=== PATIENT | female | born 1950 | race Caucasian/White ===

== ENCOUNTER → 2018-08-25 | Outpatient (CLI) | payer MEDICARE, OTHER | LOC: M WUC 17:23 | DX: M19.041 Primary osteoarthritis, right hand (principal) | CPT/HCPCS: 73130 ==

== ENCOUNTER → 2019-02-21 | Outpatient (CLI) | payer MEDICARE, OTHER ==
[2019-02-21 16:33] LABS: BASO % 0.4 % (0.0-1.0); HEMATOCRIT 42.3 % (36.0-47.0); HEMOGLOBIN 13.3 g/dl (12.0-15.5); LYMPH # 2.2 10^3/uL (1.5-4.5); LYMPH % 20.6 % (24.0-44.0); MEAN CORPUSCULAR HEMOGLOBIN 26.1 pg (27.0-33.0); MEAN CORPUSCULAR HGB CONC 31.4 g/dl (32.0-36.5); MEAN CORPUSCULAR VOLUME 82.9 fl (80.0-96.0); MONO # 0.9 10^3/uL (0.0-0.8); MONO % 8.4 % (0.0-5.0); NEUTROPHILS # 7.7 10^3/uL (1.8-7.7); NEUTROPHILS % 70.2 % (36.0-66.0); PLATELET COUNT, AUTOMATED 328 10^3/uL (150-450); WHITE BLOOD COUNT 10.9 10^3/uL (4.0-10.0)
[2019-02-21 16:43] LABS: ALBUMIN 3.8 GM/DL (3.2-5.2); BILIRUBIN,TOTAL 0.4 MG/DL (0.2-1.0); CALCIUM LEVEL 9.3 MG/DL (8.8-10.2); CREATININE FOR GFR 1.01 MG/DL (0.55-1.30); FREE T4 1.25 NG/DL (0.76-1.46); GLOMERULAR FILTRATION RATE 58.2 (>45); POTASSIUM SERUM 4.5 MEQ/L (3.5-5.1); THYROID STIMULATING HORMONE 2.88 uIU/ML (0.358-3.740); TOTAL PROTEIN 7.2 GM/DL (6.4-8.2)
[2019-02-21 16:50] LABS: HEMOGLOBIN A1c 6.3 %
== END ==
LOC: M WUC 12:32
PROVIDERS: ATTEND Physician Assistant
DX: R22.42 Localized swelling, mass and lump, left lower limb (principal); L03.116 Cellulitis of left lower limb

== ENCOUNTER → 2019-03-27 | Outpatient (CLI) | payer MEDICARE, OTHER ==
--- NOTE | 2019-03-27 15:43 | REP ---
BILATERAL LOWER EXTREMITY DUPLEX DOPPLER ARTERIAL ULTRASOUND: Real-time ultrasound evaluation and duplex Doppler interrogation of bilateral lower extremity arterial systems is performed. There are normal flow velocities bilaterally. Triphasic waveforms are seen throughout the right lower extremity arterial system as well as the left lower extremity arterial system, although monophasic waveforms are seen in the left profunda, distal left SFA, proximal posterior tibial artery and distal left anterior tibial artery. I do not see evidence of severe stenosis or occlusion. RIGHT LEFT Common femoral artery 150.9 cm/s 129.9 cm/s Profunda 75.8 cm/s 72.0 cm/s SFA 140.7 cm/s 146.4 cm/s Popliteal 73 cm/s 87.2 cm/s Proximal PHILIP 86.0 cm/s 63.4 cm/s Tibial peroneal trunk 66.5 cm/s 94.9 cm/s Proximal [employer] 59 cm/s 53.2 cm/s Distal [employer] 74 cm/s 139.6 cm/s Distal PHILIP 98 cm/s 105.4 cm/s IMPRESSION: No compelling duplex Doppler sonographic evidence of severe stenosis or occlusion. Electronically Signed by Frank Bardales MD 03/28/2019 04:45 P
== END ==
LOC: M RAD 12:48
PROVIDERS: ATTEND Surgery
DX: I87.312 Chronic venous hypertension (idiopathic) with ulcer of left lower extremity (principal)

== ENCOUNTER → 2019-09-13 | Outpatient (CLI) | payer MEDICARE, OTHER ==
--- NOTE | 2019-09-13 15:49 | REP ---
Bilateral lower extremity duplex venous ultrasound with reflux evaluation. History: Chronic venous hypertension with ulcer. Findings: The deep veins are anechoic and fully compressible on two-dimensional scanning from the groin to the popliteal fossa in both lower extremities. Color flow and spectral Doppler interrogation show no evidence of venous thrombosis on either side. Reflux study: There was no evidence of deep system or superficial system venous reflux in either lower extremity with the exam done supine or with the bed tipped. The right greater saphenous vein measures 7.3 mm in AP dimension proximally at the saphenous femoral junction, 7.0 mm at midthigh, and 5.1 mm at the knee. The lesser saphenous vein measures 4.3 mm. On the left the greater saphenous vein measures 7.0 mm proximally at the saphenofemoral junction, 7.2 mm at midthigh, and 5.5 mm at the knee. The lesser saphenous vein measures 4.2 mm. Impression: There is no evidence of deep venous thrombosis or reflux in either lower extremity. Electronically Signed by Torsten Cordova MD 09/24/2019 10:05 A
== END ==
LOC: M RAD 10:21
PROVIDERS: ATTEND Surgery Vascular Surgery
DX: I87.332 Chronic venous hypertension (idiopathic) with ulcer and inflammation of left lower extremity (principal); I87.301 Chronic venous hypertension (idiopathic) without complications of right lower extremity; I70.243 Atherosclerosis of native arteries of left leg with ulceration of ankle

== ENCOUNTER 2023-11-19 16:20 | Inpatient (IN) | payer MEDICARE, OTHER ==
[~2023-11-19] VITALS: Ht 157.5 cm; Wt 145.0 kg
[2023-11-19 17:03] LABS: ABG BASE EXCESS 4.1 (-2.0-2.0); ABG O2 SATURATION 91.7 % (95.0-99.0); ABG PARTIAL PRESSURE CO2 49.7 mmHg (35.0-45.0); ABG PARTIAL PRESSURE O2 61.2 mmHg (75.0-100.0); ABG TOTAL CO2 31.5 MMOL/L (23.0-31.0); ABG pH (ARTERIAL) 7.398 UNITS (7.350-7.450)
[2023-11-19 17:50] LABS: HEMATOCRIT 40.3 % (36.0-47.0); MEAN CORPUSCULAR HEMOGLOBIN 25.7 pg (27.0-33.0); MEAN CORPUSCULAR HGB CONC 32.3 g/dl (32.0-36.5); MEAN CORPUSCULAR VOLUME 79.6 fl (80.0-96.0); RED BLOOD COUNT 5.06 10^6/uL (4.00-5.40); WHITE BLOOD COUNT 10.4 10^3/uL (4.0-10.0)
[2023-11-19 17:58] LABS: ALBUMIN 2.5 G/DL (3.2-5.2); BILIRUBIN,DIRECT 1.1 MG/DL (<0.4); BILIRUBIN,TOTAL 1.6 MG/DL (0.3-1.2); CALCIUM LEVEL 9.6 MG/DL (8.3-10.6); CK-MB VALUE MASS 2.1 NG/ML (<3.6); CREATININE FOR GFR 1.39 MG/DL (0.55-1.30); GLOMERULAR FILTRATION RATE 39.7 (>39); MB/CK RELATIVE INDEX 0.65 (< OR =4); POTASSIUM SERUM 4.4 MMOL/L (3.5-5.1); TOTAL PROTEIN 6.5 G/DL (5.7-8.2)
[2023-11-19 18:00] LABS: THYROID STIMULATING HORMONE 3.278 uIU/ML (0.55-4.78)
[2023-11-19 18:01] LABS: THYROXINE (T4) 7.4 UG/DL (4.5-10.9)
[2023-11-19 18:10] LABS: INR 1.34; PROCALCITONIN 33.8 ng/ml; PROTHROMBIN TIME 16.1 SECONDS (12.5-14.5)
[2023-11-19] MEDS ORDERED: NS 1,000 ML IV ONE ×2 (18:10→21:35)
[2023-11-19 18:11] LABS: PARTIAL THROMBOPLASTIN TIME 27.1 SECONDS (24.8-34.2)
[2023-11-19] MEDS ORDERED: ISOVUE-370 76% 100ML VIAL As Ordered ONE (18:12)
[2023-11-19 18:31] LABS: EOSINOPHILS 1 % (0-3); LYMPHOCYTES 2 % (16-44); METAMYELOCYTES 2 % (0-0); MONOCYTES 5 % (0-5); NEUTROPHILS 79 % (28-66)
[2023-11-19 18:36] LABS: PLATELET COUNT, AUTOMATED 84 10^3/uL (150-450); PLATELET ESTIMATE DECREASED (NORMAL)
[2023-11-19] MEDS ORDERED: HOME MED LIST COMPLETE! XX SCH (18:50)
[2023-11-19] MEDS ORDERED: cefTRIAXone SOD 2 GM in D5W MINI-BAG PLUS 50 ML IV ONE (18:55)
[2023-11-19 18:59] LABS: CK-MB VALUE MASS 1.9 NG/ML (<3.6)
[2023-11-19 19:00] LABS: MB/CK RELATIVE INDEX 0.63 (< OR =4)
[2023-11-19] MEDS ORDERED: ALBUTEROL SULFATE 2.5MG/0.5ML INH NEB SOLN NEB ONE (21:25)
[2023-11-19 22:44] VITALS: BP 116/57; TEMP 97.7; O2SAT 93
[2023-11-19 23:00] VITALS: TEMP 98.7
[2023-11-19] MEDS ORDERED: FLUCONAZOLE 200 MG in IV 1 EA IV ONE (23:00)
[2023-11-19] MEDS ORDERED: ALBUTEROL SULFATE 2.5MG/0.5ML INH NEB SOLN NEB PRN (23:00)
[2023-11-19 23:16] LABS: ABG BASE EXCESS 2.7 (-2.0-2.0); ABG HCO3 30.4 MMOL/L (22.0-26.0); ABG O2 SATURATION 96.3 % (95.0-99.0); ABG PARTIAL PRESSURE O2 90.2 mmHg (75.0-100.0); ABG STANDARD HCO3 26.9 MMOL/L. (22.0-26.0); ABG TOTAL CO2 32.3 MMOL/L (23.0-31.0); ABG pH (ARTERIAL) 7.309 UNITS (7.350-7.450)
[2023-11-20] VITALS (15 sets, daily range): BP systolic 105–148; BP diastolic 51–69; TEMP 98–99.1; O2SAT 87–99
[2023-11-20] MEDS: NS 1,000 ML IV SCH ×2 (00:07→18:13)
[2023-11-20] MEDS: IPRATROPIUM 0.5MG/ALBUTEROL 2.5MG INH SOL UD 3ML (DUONEB) NEB SCH ×4 (02:28→19:38)
[2023-11-20 05:30] LABS: ABG BASE EXCESS 2.9 (-2.0-2.0); ABG HCO3 29.1 MMOL/L (22.0-26.0); ABG O2 SATURATION 94.1 % (95.0-99.0); ABG PARTIAL PRESSURE CO2 51.7 mmHg (35.0-45.0); ABG PARTIAL PRESSURE O2 70.4 mmHg (75.0-100.0); ABG TOTAL CO2 30.7 MMOL/L (23.0-31.0); ABG pH (ARTERIAL) 7.368 UNITS (7.350-7.450)
[2023-11-20] MEDS ORDERED: HEPARIN SOD (PORCINE) 5000UNITS/ML 1ML VIAL/SYRINGE SC SCH (06:00)
[2023-11-20] MEDS: ACETAMINOPHEN TAB 650MG DOSE (2X325MG) PO PRN ×3 (06:18→22:07)
[2023-11-20 06:21] LABS: HEMATOCRIT 34.7 % (36.0-47.0); HEMOGLOBIN 11.3 g/dl (12.0-15.5); MEAN CORPUSCULAR HEMOGLOBIN 25.9 pg (27.0-33.0); MEAN CORPUSCULAR HGB CONC 32.6 g/dl (32.0-36.5); MEAN CORPUSCULAR VOLUME 79.6 fl (80.0-96.0); RED BLOOD COUNT 4.36 10^6/uL (4.00-5.40); WHITE BLOOD COUNT 11.6 10^3/uL (4.0-10.0)
[2023-11-20 06:22] LABS: PLATELET COUNT, AUTOMATED 63 10^3/uL (150-450)
[2023-11-20 07:02] LABS: LYMPHOCYTES 8 % (16-44); MONOCYTES 5 % (0-5); NEUTROPHILS 83 % (28-66)
[2023-11-20 07:04] LABS: PLATELET ESTIMATE DECREASED (NORMAL)
[2023-11-20 08:25] LABS: ALBUMIN 1.9 G/DL (3.2-5.2); BILIRUBIN,TOTAL 1.3 MG/DL (0.3-1.2); CALCIUM LEVEL 8.4 MG/DL (8.3-10.6); CREATININE FOR GFR 1.44 MG/DL (0.55-1.30); GLOMERULAR FILTRATION RATE 38.1 (>39); PHOSPHORUS LEVEL 4.5 MG/DL (2.4-5.1); POTASSIUM SERUM 4.8 MMOL/L (3.5-5.1); TOTAL PROTEIN 5.3 G/DL (5.7-8.2)
[2023-11-20] MEDS: NYSTATIN 100,000 UNITS/GM TOPICAL PWD 15GM TOP SCH (09:00)
[2023-11-20 11:50] LABS: VENOUS BASE EXCESS 2.2 (-2.0-2.0); VENOUS HCO3 28.2 MMOL/L (23.0-27.0); VENOUS O2 SATURATION 99.6 % (60.0-80.0); VENOUS PARTIAL PRESSURE CO2 49.7 mmHg (38.0-50.0); VENOUS PARTIAL PRESSURE O2 204.6 mmHg (30.0-50.0); VENOUS PH 7.371 UNITS (7.330-7.430); VENOUS STANDARD HCO3 26.5 MMOL/L; VENOUS TOTAL CO2 29.7 MMOL/L (24.0-28.0)
[2023-11-20] MEDS: cefTRIAXone SOD 1 GM in D5W MINI-BAG PLUS 50 ML IV SCH (18:13)
[2023-11-20] MEDS: HYDROMORPHONE HCL 0.5 MG/ 0.5 ML SYRINGE IV PRN (23:36)
[2023-11-20 23:44] LABS: ABG BASE EXCESS 0.7 (-2.0-2.0); ABG HCO3 28.7 MMOL/L (22.0-26.0); ABG O2 SATURATION 98.2 % (95.0-99.0); ABG PARTIAL PRESSURE O2 112.3 mmHg (75.0-100.0); ABG STANDARD HCO3 25.1 MMOL/L. (22.0-26.0); ABG TOTAL CO2 30.7 MMOL/L (23.0-31.0); ABG pH (ARTERIAL) 7.273 UNITS (7.350-7.450)
[2023-11-20 23:47] LABS: ABG PARTIAL PRESSURE CO2 63.5 mmHg (35.0-45.0)
[2023-11-21] VITALS (62 sets, daily range): BP systolic 76–148; BP diastolic 41–66; TEMP 96.9–99; O2SAT 90–99
[2023-11-21] MEDS: IPRATROPIUM 0.5MG/ALBUTEROL 2.5MG INH SOL UD 3ML (DUONEB) NEB SCH ×4 (01:36→19:11)
[2023-11-21] MEDS ORDERED: NS 500 ML IV ONE (02:50)
[2023-11-21 03:01] LABS: ABG BASE EXCESS 0.3 (-2.0-2.0); ABG HCO3 29.6 MMOL/L (22.0-26.0); ABG O2 SATURATION 99.3 % (95.0-99.0); ABG PARTIAL PRESSURE O2 182.2 mmHg (75.0-100.0); ABG STANDARD HCO3 24.8 MMOL/L. (22.0-26.0); ABG TOTAL CO2 31.9 MMOL/L (23.0-31.0)
[2023-11-21] MEDS ORDERED: PROPOFOL 1,000 MG/100 ML VIAL As Ordered ONE (03:02)
[2023-11-21 03:03] LABS: ABG pH (ARTERIAL) 7.219 UNITS (7.350-7.450)
[2023-11-21 03:04] LABS: ABG PARTIAL PRESSURE CO2 74.1 mmHg (35.0-45.0)
[2023-11-21] MEDS: propofoL 1,000 MG in IV 1 EA IV SCH ×2 (03:10→13:55)
[2023-11-21] MEDS ORDERED: MIDAZOLAM 5MG/ML 1ML VIAL As Ordered ONE (03:59)
[2023-11-21] MEDS ORDERED: NS 1,000 ML IV ONE (04:00)
[2023-11-21] MEDS ORDERED: MIDAZOLAM 5MG/ML 1ML VIAL IV ONE ×2 (04:00→04:55)
[2023-11-21] MEDS ORDERED: ROCURONIUM BROMIDE 50MG/5ML VIAL IV ONE (04:07)
[2023-11-21] MEDS ORDERED: MIDAZOLAM 5MG/ML 1ML VIAL IM ONE (04:40)
[2023-11-21] MEDS: MIDAZOLAM 100MG/100ML-0.9%NACL 100 MG in IV 1 EA IV SCH (04:58)
[2023-11-21 05:00] LABS: HEMATOCRIT 30.1 % (36.0-47.0); HEMOGLOBIN 9.7 g/dl (12.0-15.5); MEAN CORPUSCULAR HGB CONC 32.2 g/dl (32.0-36.5); MEAN CORPUSCULAR VOLUME 80.7 fl (80.0-96.0); RED BLOOD COUNT 3.73 10^6/uL (4.00-5.40); WHITE BLOOD COUNT 12.4 10^3/uL (4.0-10.0)
[2023-11-21 05:01] LABS: PLATELET COUNT, AUTOMATED 66 10^3/uL (150-450)
[2023-11-21] MEDS: NS 1,000 ML IV SCH ×2 (05:09→15:43)
[2023-11-21 05:22] LABS: ALBUMIN 1.8 G/DL (3.2-5.2); CALCIUM LEVEL 8.6 MG/DL (8.3-10.6); CREATININE FOR GFR 1.79 MG/DL (0.55-1.30); GLOMERULAR FILTRATION RATE 29.6 (>39); MAGNESIUM LEVEL 2.4 MG/DL (1.8-2.4); POTASSIUM SERUM 4.8 MMOL/L (3.5-5.1); TOTAL PROTEIN 5.3 G/DL (5.7-8.2)
[2023-11-21 05:48] LABS: ANISOCYTOSIS 2+; ATYPICAL LYMPH 4 % (0-5); BASOPHILS 1 % (0-1); EOSINOPHILS 1 % (0-3); LYMPHOCYTES 4 % (16-44); MONOCYTES 3 % (0-5); NEUTROPHILS 85 % (28-66); PLATELET ESTIMATE DECREASED (NORMAL)
[2023-11-21 06:10] LABS: ABG HCO3 24.9 MMOL/L (22.0-26.0); ABG O2 SATURATION 97.8 % (95.0-99.0); ABG PARTIAL PRESSURE CO2 52.2 mmHg (35.0-45.0); ABG PARTIAL PRESSURE O2 99.6 mmHg (75.0-100.0); ABG STANDARD HCO3 22.8 MMOL/L. (22.0-26.0); ABG TOTAL CO2 26.5 MMOL/L (23.0-31.0); ABG pH (ARTERIAL) 7.296 UNITS (7.350-7.450)
[2023-11-21] MEDS ORDERED: LR 1,000 ML IV ONE (08:35)
[2023-11-21] MEDS: NYSTATIN 100,000 UNITS/GM TOPICAL PWD 15GM TOP SCH (09:00)
[2023-11-21 11:05] LABS: VENOUS BASE EXCESS 1.4 (-2.0-2.0); VENOUS HCO3 25.4 MMOL/L (23.0-27.0); VENOUS O2 SATURATION 99.4 % (60.0-80.0); VENOUS PARTIAL PRESSURE CO2 37.8 mmHg (38.0-50.0); VENOUS PARTIAL PRESSURE O2 207.3 mmHg (30.0-50.0); VENOUS PH 7.445 UNITS (7.330-7.430); VENOUS STANDARD HCO3 25.8 MMOL/L; VENOUS TOTAL CO2 26.5 MMOL/L (24.0-28.0)
[2023-11-21] MEDS: cefTRIAXone SOD 1 GM in D5W MINI-BAG PLUS 50 ML IV SCH (17:35)
[2023-11-21 18:49] LABS: HEMATOCRIT 30.9 % (36.0-47.0); HEMOGLOBIN 10.2 g/dl (12.0-15.5); MEAN CORPUSCULAR HEMOGLOBIN 25.6 pg (27.0-33.0); MEAN CORPUSCULAR VOLUME 77.4 fl (80.0-96.0); RED BLOOD COUNT 3.99 10^6/uL (4.00-5.40)
[2023-11-21 18:57] LABS: PLATELET COUNT, AUTOMATED 82 10^3/uL (150-450)
[2023-11-21 19:36] LABS: ATYPICAL LYMPH 2 % (0-5); EOSINOPHILS 3 % (0-3); LYMPHOCYTES 10 % (16-44); MONOCYTES 4 % (0-5); NEUTROPHILS 79 % (28-66); PLATELET ESTIMATE DECREASED (NORMAL)
[2023-11-21 19:37] LABS: HYPOCHROMASIA 1+; MICROCYTOSIS 1+
[2023-11-22] VITALS (29 sets, daily range): BP systolic 104–158; BP diastolic 51–75; TEMP 97.5–100; O2SAT 90–97
[2023-11-22] MEDS: propofoL 1,000 MG in IV 1 EA IV SCH ×3 (00:40→22:10)
[2023-11-22] MEDS: HYDROMORPHONE HCL 0.5 MG/ 0.5 ML SYRINGE IV PRN ×2 (02:13→08:21)
[2023-11-22] MEDS: NS 1,000 ML IV SCH (02:18)
[2023-11-22] MEDS: IPRATROPIUM 0.5MG/ALBUTEROL 2.5MG INH SOL UD 3ML (DUONEB) NEB SCH ×4 (02:41→19:50)
[2023-11-22] MEDS: MIDAZOLAM 100MG/100ML-0.9%NACL 100 MG in IV 1 EA IV SCH (05:05)
[2023-11-22 05:19] LABS: BASO % 0.2 % (0.0-1.0); EOS # 0.4 10^3/uL (0.0-0.5); EOS % 2.5 % (0.0-3.0); HEMATOCRIT 27.5 % (36.0-47.0); HEMOGLOBIN 9.5 g/dl (12.0-15.5); LYMPH # 1.5 10^3/uL (1.5-5.0); LYMPH % 10.2 % (24.0-44.0); MEAN CORPUSCULAR HEMOGLOBIN 26.1 pg (27.0-33.0); MEAN CORPUSCULAR HGB CONC 34.5 g/dl (32.0-36.5); MEAN CORPUSCULAR VOLUME 75.5 fl (80.0-96.0); MONO # 0.8 10^3/uL (0.0-0.8); MONO % 5.7 % (2.0-8.0); NEUTROPHILS # 11.3 10^3/uL (1.5-8.5); NEUTROPHILS % 76.9 % (36.0-66.0); RED BLOOD COUNT 3.64 10^6/uL (4.00-5.40); WHITE BLOOD COUNT 14.7 10^3/uL (4.0-10.0)
[2023-11-22 05:22] LABS: PLATELET COUNT, AUTOMATED 88 10^3/uL (150-450)
[2023-11-22 05:42] LABS: ALBUMIN 1.5 G/DL (3.2-5.2); BILIRUBIN,TOTAL 2.1 MG/DL (0.3-1.2); CALCIUM LEVEL 8.2 MG/DL (8.3-10.6); CREATININE FOR GFR 1.68 MG/DL (0.55-1.30); GLOMERULAR FILTRATION RATE 31.9 (>39); MAGNESIUM LEVEL 2.2 MG/DL (1.8-2.4); POTASSIUM SERUM 5.1 MMOL/L (3.5-5.1); TOTAL PROTEIN 4.8 G/DL (5.7-8.2)
[2023-11-22] MEDS: NYSTATIN 100,000 UNITS/GM TOPICAL PWD 15GM TOP SCH (08:21)
[2023-11-22] MEDS ORDERED: FUROSEMIDE 100MG/10ML VIAL IV ONE (09:45)
[2023-11-22 10:10] LABS: APPEARANCE, URINE MANUAL HAZY (CLEAR); COLOR, URINE MANUAL DK YELLOW (YELLOW); PH,URINE MAN 5.5 UNITS (5.0 - 7.0)
[2023-11-22 10:11] LABS: BILIRUBIN, URINE MANUAL NEGATIVE (NEGATIVE); BLOOD URINE MANUAL POSITIVE (NEGATIVE); GLUCOSE, URINE (UA) MANUAL NEGATIVE (NEGATIVE); KETONE, URINE MANUAL NEGATIVE (NEGATIVE); LEUKOCYTE ESTERASE, URINE MAN POSITIVE (NEGATIVE); NITRITE, URINE MANUAL NEGATIVE (NEGATIVE); PROTEIN, URINE MANUAL 1+ mg/dL (NEGATIVE); SPECIFIC GRAVITY,URINE MANUAL 1.025 (1.002-1.035); UROBILINOGEN, URINE MANUAL NORMAL (NORMAL)
[2023-11-22 10:21] LABS: RBC, URINE 20-30 /hpf (0-3); WBC, URINE TNTC /hpf (0-3)
[2023-11-22 10:22] LABS: RENAL EPITHELIAL CELLS, URINE SMALL AMOUNT /hpf; SQUAMOUS EPITHELIAL CELL URINE MOD AMOUNT /hpf (SMALL AMT); TRANSITIONAL EPI CELLS, URINE SMALL AMOUNT /hpf
[2023-11-22 10:23] LABS: AMORPHOUS SEDIMENT, URINE SMALL AMOUNT (NEGATIVE); BACTERIA, URINE MOD AMOUNT; HYALINE CAST, URINE NONE SEEN /lpf (0-1); MUCUS, URINE SMALL AMOUNT (NEGATIVE)
[2023-11-22 10:37] LABS: INR 1.41; PROTHROMBIN TIME 16.8 SECONDS (12.5-14.5)
[2023-11-22 10:38] LABS: PARTIAL THROMBOPLASTIN TIME 26.9 SECONDS (24.8-34.2)
[2023-11-22] MEDS: fentaNYL 100 MCG/2 ML INJECTION IV PRN ×3 (13:29→23:50)
[2023-11-22] MEDS: PANTOPRAZOLE 40MG VIAL IV SCH (15:48)
[2023-11-22] MEDS ORDERED: cefTRIAXone SOD 2 GM in D5W MINI-BAG PLUS 50 ML IV SCH (18:00)
[2023-11-23] VITALS (24 sets, daily range): BP systolic 97–173; BP diastolic 51–79; TEMP 98.5–101.3; O2SAT 91–100
[2023-11-23] MEDS: IPRATROPIUM 0.5MG/ALBUTEROL 2.5MG INH SOL UD 3ML (DUONEB) NEB SCH ×4 (02:17→20:14)
[2023-11-23] MEDS: fentaNYL 100 MCG/2 ML INJECTION IV PRN ×4 (04:23→20:30)
[2023-11-23 05:08] LABS: HEMATOCRIT 27.5 % (36.0-47.0); HEMOGLOBIN 9.3 g/dl (12.0-15.5); MEAN CORPUSCULAR HEMOGLOBIN 25.4 pg (27.0-33.0); MEAN CORPUSCULAR HGB CONC 33.8 g/dl (32.0-36.5); MEAN CORPUSCULAR VOLUME 75.1 fl (80.0-96.0); PLATELET COUNT, AUTOMATED 130 10^3/uL (150-450); RED BLOOD COUNT 3.66 10^6/uL (4.00-5.40); WHITE BLOOD COUNT 17.4 10^3/uL (4.0-10.0)
[2023-11-23 05:27] LABS: ALBUMIN 1.5 G/DL (3.2-5.2); BILIRUBIN,TOTAL 3.1 MG/DL (0.3-1.2); CALCIUM LEVEL 8.2 MG/DL (8.3-10.6); CREATININE FOR GFR 1.59 MG/DL (0.55-1.30); MAGNESIUM LEVEL 2.2 MG/DL (1.8-2.4); POTASSIUM SERUM 4.5 MMOL/L (3.5-5.1)
[2023-11-23 05:38] LABS: ANISOCYTOSIS 1+; EOSINOPHILS 4 % (0-3); LYMPHOCYTES 8 % (16-44); METAMYELOCYTES 1 % (0-0); MONOCYTES 6 % (0-5); NEUTROPHILS 80 % (28-66); PLATELET ESTIMATE DECREASED (NORMAL)
[2023-11-23 05:39] LABS: TARGET CELLS 2+
[2023-11-23 05:41] LABS: TOXIC GRANULATION 1+
[2023-11-23] MEDS: MIDAZOLAM 100MG/100ML-0.9%NACL 100 MG in IV 1 EA IV SCH (06:24)
[2023-11-23] MEDS: ENOXAPARIN 60MG/0.6ML SYRINGE (J1650 PER 10MG) SC SCH ×2 (12:18→20:31)
[2023-11-23] MEDS: ACETAMINOPHEN TAB 650MG DOSE (2X325MG) PO PRN (12:54)
[2023-11-23] MEDS: PANTOPRAZOLE 40MG VIAL IV SCH (14:39)
[2023-11-23] MEDS ORDERED: AMPICILLIN SOD/SULBACTAM SOD 1.5 GM in D5W MINI-BAG PLUS 50 ML IV SCH (16:00)
[2023-11-23] MEDS: PIPERACILLIN/TAZOBACTAM SOD 2.25 GM in D5W MINI-BAG PLUS 50 ML IV SCH ×2 (17:32→23:50)
[2023-11-24] VITALS (30 sets, daily range): BP systolic 112–132; BP diastolic 53–79; TEMP 98.1–102.3; O2SAT 93–97
[2023-11-24] MEDS: fentaNYL 100 MCG/2 ML INJECTION IV PRN ×6 (00:33→23:03)
[2023-11-24] MEDS: IPRATROPIUM 0.5MG/ALBUTEROL 2.5MG INH SOL UD 3ML (DUONEB) NEB SCH ×4 (01:47→19:21)
[2023-11-24 05:28] LABS: BASO # 0.1 10^3/uL (0.0-0.2); BASO % 0.3 % (0.0-1.0); EOS # 0.3 10^3/uL (0.0-0.5); EOS % 1.5 % (0.0-3.0); HEMATOCRIT 27.5 % (36.0-47.0); HEMOGLOBIN 9.4 g/dl (12.0-15.5); LYMPH # 1.3 10^3/uL (1.5-5.0); LYMPH % 6.6 % (24.0-44.0); MEAN CORPUSCULAR HGB CONC 34.2 g/dl (32.0-36.5); MEAN CORPUSCULAR VOLUME 76.2 fl (80.0-96.0); MONO # 0.9 10^3/uL (0.0-0.8); MONO % 4.2 % (2.0-8.0); NEUTROPHILS % 83.2 % (36.0-66.0); PLATELET COUNT, AUTOMATED 161 10^3/uL (150-450); RED BLOOD COUNT 3.61 10^6/uL (4.00-5.40); WHITE BLOOD COUNT 20.4 10^3/uL (4.0-10.0)
[2023-11-24] MEDS: MIDAZOLAM 100MG/100ML-0.9%NACL 100 MG in IV 1 EA IV SCH (05:48)
[2023-11-24 05:50] LABS: ALBUMIN 1.5 G/DL (3.2-5.2); BILIRUBIN,TOTAL 3.6 MG/DL (0.3-1.2); CALCIUM LEVEL 8.2 MG/DL (8.3-10.6); CREATININE FOR GFR 1.39 MG/DL (0.55-1.30); GLOMERULAR FILTRATION RATE 39.7 (>39); MAGNESIUM LEVEL 2.2 MG/DL (1.8-2.4); PHOSPHORUS LEVEL 4.6 MG/DL (2.4-5.1); POTASSIUM SERUM 4.6 MMOL/L (3.5-5.1); TOTAL PROTEIN 5.2 G/DL (5.7-8.2)
[2023-11-24] MEDS: PIPERACILLIN/TAZOBACTAM SOD 2.25 GM in D5W MINI-BAG PLUS 50 ML IV SCH (05:50)
[2023-11-24] MEDS ORDERED: LIDOCAINE 1% MDV 20ML VIAL SC ONE (08:00)
[2023-11-24] MEDS ORDERED: fentaNYL 100 MCG/2 ML INJECTION IV ONE ×2 (08:30→09:30)
[2023-11-24] MEDS: ENOXAPARIN 60MG/0.6ML SYRINGE (J1650 PER 10MG) SC SCH ×2 (09:21→21:37)
[2023-11-24] MEDS: PIPERACILLIN/TAZOBACTAM SOD 4.5 GM in D5W MINI-BAG PLUS 50 ML IV SCH ×3 (12:22→23:56)
[2023-11-24] MEDS: PANTOPRAZOLE 40MG VIAL IV SCH (15:12)
[2023-11-24] MEDS: ACETAMINOPHEN TAB 650MG DOSE (2X325MG) PO PRN (21:37)
[2023-11-25] VITALS (22 sets, daily range): BP systolic 111–168; BP diastolic 55–75; TEMP 98.6–99.6; O2SAT 90–99
[2023-11-25] MEDS: IPRATROPIUM 0.5MG/ALBUTEROL 2.5MG INH SOL UD 3ML (DUONEB) NEB SCH ×4 (01:11→19:26)
[2023-11-25] MEDS: fentaNYL 100 MCG/2 ML INJECTION IV PRN ×3 (02:48→08:01)
[2023-11-25] MEDS: PIPERACILLIN/TAZOBACTAM SOD 4.5 GM in D5W MINI-BAG PLUS 50 ML IV SCH ×4 (05:44→23:54)
[2023-11-25] MEDS: MIDAZOLAM 100MG/100ML-0.9%NACL 100 MG in IV 1 EA IV SCH (05:46)
[2023-11-25 06:34] LABS: HEMATOCRIT 27.2 % (36.0-47.0); HEMOGLOBIN 8.9 g/dl (12.0-15.5); MEAN CORPUSCULAR HEMOGLOBIN 25.6 pg (27.0-33.0); MEAN CORPUSCULAR HGB CONC 32.7 g/dl (32.0-36.5); MEAN CORPUSCULAR VOLUME 78.4 fl (80.0-96.0); PLATELET COUNT, AUTOMATED 217 10^3/uL (150-450); RED BLOOD COUNT 3.47 10^6/uL (4.00-5.40); WHITE BLOOD COUNT 16.7 10^3/uL (4.0-10.0)
[2023-11-25 07:08] LABS: ATYPICAL LYMPH 2 % (0-5); BASOPHILS 1 % (0-1); EOSINOPHILS 3 % (0-3); LYMPHOCYTES 9 % (16-44); METAMYELOCYTES 1 % (0-0); MONOCYTES 4 % (0-5); NEUTROPHILS 80 % (28-66)
[2023-11-25 07:09] LABS: ALBUMIN 1.5 G/DL (3.2-5.2); ANISOCYTOSIS 2+; BILIRUBIN,TOTAL 4.9 MG/DL (0.3-1.2); CALCIUM LEVEL 8.2 MG/DL (8.3-10.6); CREATININE FOR GFR 1.49 MG/DL (0.55-1.30); GLOMERULAR FILTRATION RATE 36.6 (>39); HYPOCHROMASIA 1+; MAGNESIUM LEVEL 2.4 MG/DL (1.8-2.4); PLATELET ESTIMATE NORMAL (NORMAL); POTASSIUM SERUM 4.6 MMOL/L (3.5-5.1); TARGET CELLS 1+; TOTAL PROTEIN 5.3 G/DL (5.7-8.2)
[2023-11-25] MEDS: ENOXAPARIN 60MG/0.6ML SYRINGE (J1650 PER 10MG) SC SCH (08:42)
[2023-11-25] MEDS ORDERED: LIDOCAINE 2% W/ EPINEPHRINE 1.7 ML DENTAL INJ ONE (09:45)
[2023-11-25] MEDS ORDERED: LIDOCAINE 2% W/ EPINEPHRINE 1.7 ML DENTAL INJ As Ordered ONE (09:45)
[2023-11-25] MEDS: dexmedeTOMidine 200 MCG in IV 1 EA IV SCH ×8 (12:02→23:47)
[2023-11-25] MEDS: PANTOPRAZOLE 40MG VIAL IV SCH (15:21)
[2023-11-25] MEDS: ENOXAPARIN 40MG/0.4ML SYRINGE (J1650 PER 10MG) SC SCH (20:11)
[2023-11-26] VITALS (49 sets, daily range): BP systolic 78–178; BP diastolic 44–80; TEMP 97.7–102.2; O2SAT 89–97
[2023-11-26] MEDS: ACETAMINOPHEN TAB 650MG DOSE (2X325MG) PO PRN ×2 (00:21→16:04)
[2023-11-26] MEDS: fentaNYL 100 MCG/2 ML INJECTION IV PRN ×5 (00:22→15:42)
[2023-11-26] MEDS: dexmedeTOMidine 200 MCG in IV 1 EA IV SCH ×6 (01:12→20:31)
[2023-11-26] MEDS: IPRATROPIUM 0.5MG/ALBUTEROL 2.5MG INH SOL UD 3ML (DUONEB) NEB SCH ×4 (02:51→19:13)
[2023-11-26 05:22] LABS: BASO # 0.1 10^3/uL (0.0-0.2); BASO % 0.4 % (0.0-1.0); HEMATOCRIT 28.5 % (36.0-47.0); HEMOGLOBIN 9.3 g/dl (12.0-15.5); LYMPH % 12.6 % (24.0-44.0); MEAN CORPUSCULAR HEMOGLOBIN 26.1 pg (27.0-33.0); MEAN CORPUSCULAR HGB CONC 32.6 g/dl (32.0-36.5); MEAN CORPUSCULAR VOLUME 79.8 fl (80.0-96.0); MONO # 0.7 10^3/uL (0.0-0.8); MONO % 4.4 % (2.0-8.0); NEUTROPHILS # 12.5 10^3/uL (1.5-8.5); NEUTROPHILS % 79.1 % (36.0-66.0); PLATELET COUNT, AUTOMATED 291 10^3/uL (150-450); RED BLOOD COUNT 3.57 10^6/uL (4.00-5.40); WHITE BLOOD COUNT 15.8 10^3/uL (4.0-10.0)
[2023-11-26] MEDS: PIPERACILLIN/TAZOBACTAM SOD 4.5 GM in D5W MINI-BAG PLUS 50 ML IV SCH ×4 (05:27→23:49)
[2023-11-26 05:52] LABS: ALBUMIN 1.7 G/DL (3.2-5.2); BILIRUBIN,TOTAL 5.4 MG/DL (0.3-1.2); CALCIUM LEVEL 8.3 MG/DL (8.3-10.6); CREATININE FOR GFR 1.45 MG/DL (0.55-1.30); GLOMERULAR FILTRATION RATE 37.8 (>39); MAGNESIUM LEVEL 2.2 MG/DL (1.8-2.4); POTASSIUM SERUM 4.6 MMOL/L (3.5-5.1); TOTAL PROTEIN 5.7 G/DL (5.7-8.2)
[2023-11-26] MEDS: MIDAZOLAM 100MG/100ML-0.9%NACL 100 MG in IV 1 EA IV SCH (06:12)
[2023-11-26 06:17] LABS: ABG BASE EXCESS 4.1 (-2.0-2.0); ABG HCO3 29.1 MMOL/L (22.0-26.0); ABG O2 SATURATION 95.4 % (95.0-99.0); ABG PARTIAL PRESSURE CO2 45.6 mmHg (35.0-45.0); ABG PARTIAL PRESSURE O2 83.1 mmHg (75.0-100.0); ABG STANDARD HCO3 28.2 MMOL/L. (22.0-26.0); ABG TOTAL CO2 30.5 MMOL/L (23.0-31.0); ABG pH (ARTERIAL) 7.423 UNITS (7.350-7.450)
[2023-11-26] MEDS: propofoL 1,000 MG in IV 1 EA IV SCH ×4 (11:31→19:27)
[2023-11-26] MEDS: PANTOPRAZOLE 40MG VIAL IV SCH (15:42)
[2023-11-26] MEDS: ENOXAPARIN 40MG/0.4ML SYRINGE (J1650 PER 10MG) SC SCH (22:04)
[2023-11-27] VITALS (36 sets, daily range): BP systolic 99–151; BP diastolic 50–69; TEMP 97.8–101.2; O2SAT 90–96
[2023-11-27] MEDS: ACETAMINOPHEN TAB 650MG DOSE (2X325MG) PO PRN ×2 (00:28→08:32)
[2023-11-27] MEDS: fentaNYL 100 MCG/2 ML INJECTION IV PRN ×3 (00:29→11:37)
[2023-11-27] MEDS: dexmedeTOMidine 200 MCG in IV 1 EA IV SCH ×6 (01:29→22:09)
[2023-11-27] MEDS: IPRATROPIUM 0.5MG/ALBUTEROL 2.5MG INH SOL UD 3ML (DUONEB) NEB SCH ×4 (03:26→19:28)
[2023-11-27] MEDS: MIDAZOLAM 100MG/100ML-0.9%NACL 100 MG in IV 1 EA IV SCH (04:45)
[2023-11-27 04:48] LABS: BASO # 0.1 10^3/uL (0.0-0.2); BASO % 0.5 % (0.0-1.0); EOS % 0.1 % (0.0-3.0); HEMATOCRIT 27.5 % (36.0-47.0); LYMPH # 3.3 10^3/uL (1.5-5.0); LYMPH % 21.5 % (24.0-44.0); MEAN CORPUSCULAR HEMOGLOBIN 26.2 pg (27.0-33.0); MEAN CORPUSCULAR HGB CONC 32.7 g/dl (32.0-36.5); MEAN CORPUSCULAR VOLUME 79.9 fl (80.0-96.0); MONO # 0.6 10^3/uL (0.0-0.8); MONO % 4.1 % (2.0-8.0); NEUTROPHILS # 10.9 10^3/uL (1.5-8.5); NEUTROPHILS % 71.4 % (36.0-66.0); PLATELET COUNT, AUTOMATED 293 10^3/uL (150-450); RED BLOOD COUNT 3.44 10^6/uL (4.00-5.40); WHITE BLOOD COUNT 15.3 10^3/uL (4.0-10.0)
[2023-11-27 05:15] LABS: ALBUMIN 1.5 G/DL (3.2-5.2); BILIRUBIN,TOTAL 3.6 MG/DL (0.3-1.2); CALCIUM LEVEL 8.1 MG/DL (8.3-10.6); CREATININE FOR GFR 1.58 MG/DL (0.55-1.30); GLOMERULAR FILTRATION RATE 34.2 (>39); MAGNESIUM LEVEL 2.1 MG/DL (1.8-2.4); POTASSIUM SERUM 4.6 MMOL/L (3.5-5.1); TOTAL PROTEIN 5.3 G/DL (5.7-8.2)
[2023-11-27] MEDS: PIPERACILLIN/TAZOBACTAM SOD 4.5 GM in D5W MINI-BAG PLUS 50 ML IV SCH ×4 (06:07→23:55)
[2023-11-27] MEDS ORDERED: fentaNYL 100 MCG/HR PATCH TOP SCH (13:00)
[2023-11-27] MEDS: MIRALAX *UNIT DOSE* 17GM PACKET PO SCH ×2 (13:32→20:45)
[2023-11-27] MEDS: PANTOPRAZOLE 40MG VIAL IV SCH (14:16)
[2023-11-27] MEDS: ENOXAPARIN 40MG/0.4ML SYRINGE (J1650 PER 10MG) SC SCH (20:48)
[2023-11-27] MEDS: MIDAZOLAM INJ 2MG/2ML VIAL IV PRN (20:54)
[2023-11-28] VITALS (28 sets, daily range): BP systolic 112–167; BP diastolic 55–78; TEMP 96.7–98.9; O2SAT 92–99
[2023-11-28] MEDS: dexmedeTOMidine 200 MCG in IV 1 EA IV SCH ×7 (00:08→23:19)
[2023-11-28] MEDS: IPRATROPIUM 0.5MG/ALBUTEROL 2.5MG INH SOL UD 3ML (DUONEB) NEB SCH ×4 (01:32→19:43)
[2023-11-28] MEDS: MIDAZOLAM INJ 2MG/2ML VIAL IV PRN (02:10)
[2023-11-28] MEDS: MIDAZOLAM 100MG/100ML-0.9%NACL 100 MG in IV 1 EA IV SCH (04:45)
[2023-11-28] MEDS: PIPERACILLIN/TAZOBACTAM SOD 4.5 GM in D5W MINI-BAG PLUS 50 ML IV SCH ×4 (05:21→23:42)
[2023-11-28 05:31] LABS: BASO # 0.1 10^3/uL (0.0-0.2); BASO % 0.4 % (0.0-1.0); EOS % 0.1 % (0.0-3.0); HEMATOCRIT 27.7 % (36.0-47.0); HEMOGLOBIN 9.1 g/dl (12.0-15.5); LYMPH # 1.5 10^3/uL (1.5-5.0); LYMPH % 10.2 % (24.0-44.0); MEAN CORPUSCULAR HEMOGLOBIN 26.5 pg (27.0-33.0); MEAN CORPUSCULAR HGB CONC 32.9 g/dl (32.0-36.5); MEAN CORPUSCULAR VOLUME 80.8 fl (80.0-96.0); MONO # 0.5 10^3/uL (0.0-0.8); MONO % 3.7 % (2.0-8.0); NEUTROPHILS # 12.3 10^3/uL (1.5-8.5); PLATELET COUNT, AUTOMATED 353 10^3/uL (150-450); RED BLOOD COUNT 3.43 10^6/uL (4.00-5.40); WHITE BLOOD COUNT 14.6 10^3/uL (4.0-10.0)
[2023-11-28 05:52] LABS: ALBUMIN 1.6 G/DL (3.2-5.2); BILIRUBIN,TOTAL 3.1 MG/DL (0.3-1.2); CALCIUM LEVEL 8.2 MG/DL (8.3-10.6); CREATININE FOR GFR 1.24 MG/DL (0.55-1.30); GLOMERULAR FILTRATION RATE 45.3 (>39); POTASSIUM SERUM 4.1 MMOL/L (3.5-5.1); TOTAL PROTEIN 5.4 G/DL (5.7-8.2)
[2023-11-28] MEDS: MIRALAX *UNIT DOSE* 17GM PACKET PO SCH ×2 (08:02→19:39)
[2023-11-28] MEDS: PANTOPRAZOLE 40MG VIAL IV SCH (15:16)
[2023-11-28] MEDS: ENOXAPARIN 40MG/0.4ML SYRINGE (J1650 PER 10MG) SC SCH (21:22)
[2023-11-29] VITALS (24 sets, daily range): BP systolic 115–173; BP diastolic 55–81; TEMP 97.9–99.1; O2SAT 85–100
[2023-11-29] MEDS: IPRATROPIUM 0.5MG/ALBUTEROL 2.5MG INH SOL UD 3ML (DUONEB) NEB SCH ×4 (01:39→19:14)
[2023-11-29] MEDS: MIDAZOLAM 100MG/100ML-0.9%NACL 100 MG in IV 1 EA IV SCH (03:57)
[2023-11-29 05:37] LABS: BASO # 0.1 10^3/uL (0.0-0.2); BASO % 0.6 % (0.0-1.0); HEMATOCRIT 28.4 % (36.0-47.0); LYMPH # 1.4 10^3/uL (1.5-5.0); LYMPH % 10.6 % (24.0-44.0); MEAN CORPUSCULAR HGB CONC 31.7 g/dl (32.0-36.5); MEAN CORPUSCULAR VOLUME 82.1 fl (80.0-96.0); MONO # 0.5 10^3/uL (0.0-0.8); MONO % 3.9 % (2.0-8.0); NEUTROPHILS # 10.6 10^3/uL (1.5-8.5); NEUTROPHILS % 83.3 % (36.0-66.0); PLATELET COUNT, AUTOMATED 419 10^3/uL (150-450); RED BLOOD COUNT 3.46 10^6/uL (4.00-5.40); WHITE BLOOD COUNT 12.7 10^3/uL (4.0-10.0)
[2023-11-29] MEDS: PIPERACILLIN/TAZOBACTAM SOD 4.5 GM in D5W MINI-BAG PLUS 50 ML IV SCH ×3 (05:51→18:39)
[2023-11-29] MEDS: dexmedeTOMidine 200 MCG in IV 1 EA IV SCH (05:51)
[2023-11-29 06:05] LABS: ALBUMIN 1.7 G/DL (3.2-5.2); BILIRUBIN,TOTAL 2.3 MG/DL (0.3-1.2); CALCIUM LEVEL 8.4 MG/DL (8.3-10.6); CREATININE FOR GFR 1.1 MG/DL (0.55-1.30); POTASSIUM SERUM 4.2 MMOL/L (3.5-5.1); TOTAL PROTEIN 5.6 G/DL (5.7-8.2)
[2023-11-29] MEDS: MIRALAX *UNIT DOSE* 17GM PACKET PO SCH ×2 (08:54→19:45)
[2023-11-29] MEDS ORDERED: fentaNYL 100 MCG/2 ML INJECTION IV ONE (12:35)
[2023-11-29] MEDS ORDERED: ACETAMINOPHEN *IV* 1,000 MG in IV 1 EA IV ONE (13:30)
[2023-11-29 15:11] LABS: HEPATITIS C QUANTITATION HCV Not Detected IU/mL (.)
[2023-11-29] MEDS ORDERED: ONDANSETRON 4MG 2ML VIAL IV PRN (16:45)
[2023-11-29] MEDS: PANTOPRAZOLE 40MG VIAL IV SCH (16:55)
[2023-11-29] MEDS ORDERED: KETOROLAC 30 MG/ML 1ML VIAL IV ONE (18:35)
[2023-11-29] MEDS: ENOXAPARIN 40MG/0.4ML SYRINGE (J1650 PER 10MG) SC SCH (20:18)
[2023-11-29] MEDS: ACETAMINOPHEN *IV* 1,000 MG in IV 1 EA IV PRN (23:41)
[2023-11-30] VITALS (15 sets, daily range): BP systolic 122–200; BP diastolic 57–85; TEMP 97.5–98.9; O2SAT 91–100
[2023-11-30] MEDS: PIPERACILLIN/TAZOBACTAM SOD 4.5 GM in D5W MINI-BAG PLUS 50 ML IV SCH ×2 (00:17→05:56)
[2023-11-30] MEDS: IPRATROPIUM 0.5MG/ALBUTEROL 2.5MG INH SOL UD 3ML (DUONEB) NEB SCH ×4 (00:52→19:47)
[2023-11-30 05:12] LABS: BASO # 0.1 10^3/uL (0.0-0.2); BASO % 0.7 % (0.0-1.0); HEMATOCRIT 30.5 % (36.0-47.0); HEMOGLOBIN 9.5 g/dl (12.0-15.5); LYMPH # 1.8 10^3/uL (1.5-5.0); LYMPH % 15.2 % (24.0-44.0); MEAN CORPUSCULAR HEMOGLOBIN 26.5 pg (27.0-33.0); MEAN CORPUSCULAR HGB CONC 31.1 g/dl (32.0-36.5); MONO # 0.8 10^3/uL (0.0-0.8); MONO % 6.2 % (2.0-8.0); NEUTROPHILS # 9.3 10^3/uL (1.5-8.5); NEUTROPHILS % 76.8 % (36.0-66.0); PLATELET COUNT, AUTOMATED 489 10^3/uL (150-450); RED BLOOD COUNT 3.59 10^6/uL (4.00-5.40); WHITE BLOOD COUNT 12.1 10^3/uL (4.0-10.0)
[2023-11-30 05:33] LABS: ALBUMIN 1.9 G/DL (3.2-5.2); BILIRUBIN,TOTAL 2.4 MG/DL (0.3-1.2); CALCIUM LEVEL 8.8 MG/DL (8.3-10.6); CREATININE FOR GFR 1.07 MG/DL (0.55-1.30); GLOMERULAR FILTRATION RATE 53.7 (>39); MAGNESIUM LEVEL 2.3 MG/DL (1.8-2.4); POTASSIUM SERUM 4.6 MMOL/L (3.5-5.1); TOTAL PROTEIN 5.9 G/DL (5.7-8.2)
[2023-11-30] MEDS: ACETAMINOPHEN *IV* 1,000 MG in IV 1 EA IV PRN (07:25)
[2023-11-30] MEDS ORDERED: KETOROLAC 30 MG/ML 1ML VIAL IV PRN (08:10)
[2023-11-30] MEDS: MIRALAX *UNIT DOSE* 17GM PACKET PO SCH ×2 (08:28→20:24)
[2023-11-30] MEDS ORDERED: LABETALOL 100MG/20ML VIAL IV SCH (09:00)
[2023-11-30] MEDS ORDERED: fentaNYL 75 MCG/HR PATCH TOP SCH (10:00)
[2023-11-30] MEDS ORDERED: FENTANYL REMOVAL DOCUMENTATION MISC XX SCH ×4 (10:00→13:00)
[2023-11-30] MEDS: FENTANYL REMOVAL DOCUMENTATION MISC XX SCH (10:14)
[2023-11-30] MEDS ORDERED: PERCOCET 5MG/325MG TAB PO PRN (10:40)
[2023-11-30] MEDS: LABETALOL 100MG TAB PO SCH ×2 (11:47→20:25)
[2023-11-30] MEDS: fentaNYL 100 MCG/HR PATCH TOP SCH (11:53)
[2023-11-30] MEDS ORDERED: fentaNYL 100 MCG/HR PATCH TOP SCH (13:00)
[2023-11-30] MEDS: PANTOPRAZOLE 40MG VIAL IV SCH (15:52)
[2023-11-30] MEDS: ENOXAPARIN 40MG/0.4ML SYRINGE (J1650 PER 10MG) SC SCH (20:29)
[2023-12-01] VITALS (7 sets, daily range): BP systolic 132–165; BP diastolic 61–76; TEMP 97–98.6; O2SAT 93–95
[2023-12-01] MEDS: IPRATROPIUM 0.5MG/ALBUTEROL 2.5MG INH SOL UD 3ML (DUONEB) NEB SCH ×4 (01:05→19:21)
[2023-12-01] MEDS ORDERED: NORCO, ANEXSIA 5/325MG TABLET (HYDROcodone/ACETAMINOPHEN) PO ONE (04:10)
[2023-12-01] MEDS ORDERED: oxyCODONE 5MG TAB PO ONE (04:20)
[2023-12-01 04:56] LABS: BASO # 0.1 10^3/uL (0.0-0.2); BASO % 0.9 % (0.0-1.0); EOS % 0.1 % (0.0-3.0); HEMATOCRIT 28.7 % (36.0-47.0); HEMOGLOBIN 8.9 g/dl (12.0-15.5); LYMPH # 1.7 10^3/uL (1.5-5.0); LYMPH % 15.9 % (24.0-44.0); MEAN CORPUSCULAR HEMOGLOBIN 26.4 pg (27.0-33.0); MEAN CORPUSCULAR VOLUME 85.2 fl (80.0-96.0); MONO # 0.6 10^3/uL (0.0-0.8); MONO % 5.9 % (2.0-8.0); NEUTROPHILS # 8.1 10^3/uL (1.5-8.5); PLATELET COUNT, AUTOMATED 505 10^3/uL (150-450); RED BLOOD COUNT 3.37 10^6/uL (4.00-5.40); WHITE BLOOD COUNT 10.7 10^3/uL (4.0-10.0)
[2023-12-01 05:19] LABS: BLOOD UREA NITROGEN 34 MG/DL (9-23); CALCIUM LEVEL 8.4 MG/DL (8.3-10.6); CARBON DIOXIDE LEVEL 28 MMOL/L (20-31); CHLORIDE LEVEL 107 MMOL/L (98-107); CREATININE FOR GFR 0.95 MG/DL (0.55-1.30); GLOMERULAR FILTRATION RATE > 60.0 (>39); GLUCOSE, FASTING 104 MG/DL (74-106); POTASSIUM SERUM 4.3 MMOL/L (3.5-5.1); SODIUM LEVEL 142 MMOL/L (136-145)
[2023-12-01 06:37] LABS: ABG BASE EXCESS 3.4 (-2.0-2.0); ABG HCO3 28.8 MMOL/L (22.0-26.0); ABG O2 SATURATION 92.9 % (95.0-99.0); ABG PARTIAL PRESSURE CO2 47.5 mmHg (35.0-45.0); ABG PARTIAL PRESSURE O2 67.2 mmHg (75.0-100.0); ABG STANDARD HCO3 27.4 MMOL/L. (22.0-26.0); ABG TOTAL CO2 30.2 MMOL/L (23.0-31.0)
[2023-12-01] MEDS: MIRALAX *UNIT DOSE* 17GM PACKET PO SCH ×2 (08:44→21:18)
[2023-12-01] MEDS: LABETALOL 100MG TAB PO SCH ×2 (08:51→21:18)
[2023-12-01] MEDS ORDERED: FUROSEMIDE 40MG/4ML VIAL IV ONE (10:00)
[2023-12-01] MEDS: oxyCODONE 5MG TAB PO PRN ×2 (13:37→21:19)
[2023-12-01] MEDS: PANTOPRAZOLE 40MG VIAL IV SCH (15:43)
[2023-12-01] MEDS: ENOXAPARIN 40MG/0.4ML SYRINGE (J1650 PER 10MG) SC SCH (21:18)
[2023-12-02] MEDS: IPRATROPIUM 0.5MG/ALBUTEROL 2.5MG INH SOL UD 3ML (DUONEB) NEB SCH ×4 (03:55→18:57)
[2023-12-02 06:00] VITALS: BP 158/75; TEMP 98.6; O2SAT 94
[2023-12-02 06:05] LABS: BASO # 0.1 10^3/uL (0.0-0.2); BASO % 0.7 % (0.0-1.0); EOS % 0.1 % (0.0-3.0); HEMATOCRIT 29.1 % (36.0-47.0); HEMOGLOBIN 9.1 g/dl (12.0-15.5); LYMPH # 1.8 10^3/uL (1.5-5.0); LYMPH % 16.3 % (24.0-44.0); MEAN CORPUSCULAR HEMOGLOBIN 26.4 pg (27.0-33.0); MEAN CORPUSCULAR HGB CONC 31.3 g/dl (32.0-36.5); MEAN CORPUSCULAR VOLUME 84.3 fl (80.0-96.0); MONO # 0.8 10^3/uL (0.0-0.8); NEUTROPHILS # 8.1 10^3/uL (1.5-8.5); NEUTROPHILS % 75.1 % (36.0-66.0); PLATELET COUNT, AUTOMATED 509 10^3/uL (150-450); RED BLOOD COUNT 3.45 10^6/uL (4.00-5.40); WHITE BLOOD COUNT 10.8 10^3/uL (4.0-10.0)
[2023-12-02 06:33] LABS: ALBUMIN 1.9 G/DL (3.2-5.2); ALKALINE PHOSPHATASE 144 U/L (46-116); ALT/SGPT 150 U/L (7.0-40); AST/SGOT 91 U/L (<34); BILIRUBIN,DIRECT 1.3 MG/DL (<0.4); BILIRUBIN,TOTAL 1.7 MG/DL (0.3-1.2); BLOOD UREA NITROGEN 29 MG/DL (9-23); CALCIUM LEVEL 8.3 MG/DL (8.3-10.6); CARBON DIOXIDE LEVEL 30 MMOL/L (20-31); CHLORIDE LEVEL 103 MMOL/L (98-107); CREATININE FOR GFR 0.83 MG/DL (0.55-1.30); GLOMERULAR FILTRATION RATE > 60.0 (>39); GLUCOSE, FASTING 109 MG/DL (74-106); POTASSIUM SERUM 4.3 MMOL/L (3.5-5.1); SODIUM LEVEL 140 MMOL/L (136-145); TOTAL PROTEIN 5.7 G/DL (5.7-8.2)
[2023-12-02] MEDS: MIRALAX *UNIT DOSE* 17GM PACKET PO SCH ×2 (09:07→21:00)
[2023-12-02] MEDS: FUROSEMIDE 40MG/4ML VIAL IV SCH (09:08)
[2023-12-02] MEDS: LABETALOL 100MG TAB PO SCH ×2 (09:09→21:25)
[2023-12-02] MEDS: oxyCODONE 5MG TAB PO PRN (09:40)
[2023-12-02 14:00] VITALS: BP 116/56; TEMP 99; O2SAT 90
[2023-12-02] MEDS: PANTOPRAZOLE 40MG VIAL IV SCH (15:15)
[2023-12-02] MEDS: ENOXAPARIN 40MG/0.4ML SYRINGE (J1650 PER 10MG) SC SCH (21:23)
[2023-12-03] MEDS: methocarbamoL 750 MG TAB PO PRN ×3 (00:01→21:20)
[2023-12-03] MEDS: IPRATROPIUM 0.5MG/ALBUTEROL 2.5MG INH SOL UD 3ML (DUONEB) NEB SCH (01:19)
[2023-12-03 05:52] LABS: BASO # 0.1 10^3/uL (0.0-0.2); BASO % 0.7 % (0.0-1.0); EOS # 0.2 10^3/uL (0.0-0.5); EOS % 2.1 % (0.0-3.0); HEMATOCRIT 29.7 % (36.0-47.0); HEMOGLOBIN 9.4 g/dl (12.0-15.5); LYMPH # 1.7 10^3/uL (1.5-5.0); LYMPH % 17.6 % (24.0-44.0); MEAN CORPUSCULAR HEMOGLOBIN 26.5 pg (27.0-33.0); MEAN CORPUSCULAR HGB CONC 31.6 g/dl (32.0-36.5); MEAN CORPUSCULAR VOLUME 83.7 fl (80.0-96.0); MONO # 0.7 10^3/uL (0.0-0.8); MONO % 6.8 % (2.0-8.0); PLATELET COUNT, AUTOMATED 515 10^3/uL (150-450); RED BLOOD COUNT 3.55 10^6/uL (4.00-5.40); WHITE BLOOD COUNT 9.7 10^3/uL (4.0-10.0)
[2023-12-03 06:00] VITALS: BP 134/55; TEMP 98.2; O2SAT 93
[2023-12-03] MEDS: oxyCODONE 5MG TAB PO PRN (06:22)
[2023-12-03 06:24] LABS: BLOOD UREA NITROGEN 26 MG/DL (9-23); CALCIUM LEVEL 8.6 MG/DL (8.3-10.6); CARBON DIOXIDE LEVEL 33 MMOL/L (20-31); CHLORIDE LEVEL 98 MMOL/L (98-107); CREATININE FOR GFR 0.78 MG/DL (0.55-1.30); GLOMERULAR FILTRATION RATE > 60.0 (>39); GLUCOSE, FASTING 115 MG/DL (74-106); POTASSIUM SERUM 4.3 MMOL/L (3.5-5.1); SODIUM LEVEL 135 MMOL/L (136-145)
[2023-12-03] MEDS ORDERED: FENTANYL REMOVAL DOCUMENTATION MISC XX SCH (07:05)
[2023-12-03] MEDS: COMBIVENT RESPIMAT 100-20MCG INHALER 4GM INH SCH ×4 (07:21→19:20)
[2023-12-03] MEDS: FUROSEMIDE 40MG/4ML VIAL IV SCH (09:57)
[2023-12-03] MEDS: MIRALAX *UNIT DOSE* 17GM PACKET PO SCH ×2 (09:57→21:23)
[2023-12-03] MEDS: LABETALOL 100MG TAB PO SCH ×2 (09:57→21:23)
[2023-12-03] MEDS ORDERED: fentaNYL 50 MCG/HR PATCH TOP SCH (10:00)
[2023-12-03] MEDS: FENTANYL REMOVAL DOCUMENTATION MISC XX SCH (10:05)
[2023-12-03] MEDS: fentaNYL 100 MCG/HR PATCH TOP SCH (10:05)
[2023-12-03 14:00] VITALS: BP 140/76; TEMP 98.2; O2SAT 92
[2023-12-03] MEDS: PANTOPRAZOLE 40MG VIAL IV SCH (15:19)
[2023-12-03] MEDS: ENOXAPARIN 40MG/0.4ML SYRINGE (J1650 PER 10MG) SC SCH (21:23)
[2023-12-03 22:00] VITALS: BP 138/70; TEMP 98.2; O2SAT 91
[2023-12-04] MEDS: oxyCODONE 5MG TAB PO PRN ×2 (01:46→17:02)
[2023-12-04 06:00] VITALS: BP 153/70; TEMP 97.5; O2SAT 95
[2023-12-04 06:12] LABS: BASO # 0.1 10^3/uL (0.0-0.2); HEMATOCRIT 30.6 % (36.0-47.0); HEMOGLOBIN 9.5 g/dl (12.0-15.5); LYMPH # 1.7 10^3/uL (1.5-5.0); LYMPH % 18.1 % (24.0-44.0); MEAN CORPUSCULAR HEMOGLOBIN 26.2 pg (27.0-33.0); MEAN CORPUSCULAR VOLUME 84.5 fl (80.0-96.0); MONO # 0.8 10^3/uL (0.0-0.8); MONO % 8.1 % (2.0-8.0); NEUTROPHILS # 6.8 10^3/uL (1.5-8.5); NEUTROPHILS % 72.2 % (36.0-66.0); PLATELET COUNT, AUTOMATED 513 10^3/uL (150-450); RED BLOOD COUNT 3.62 10^6/uL (4.00-5.40); WHITE BLOOD COUNT 9.5 10^3/uL (4.0-10.0)
[2023-12-04] MEDS: COMBIVENT RESPIMAT 100-20MCG INHALER 4GM INH SCH ×5 (06:35→20:52)
[2023-12-04 06:36] LABS: ALKALINE PHOSPHATASE 130 U/L (46-116); ALT/SGPT 148 U/L (7.0-40); AST/SGOT 58 U/L (<34); BILIRUBIN,TOTAL 1.3 MG/DL (0.3-1.2); BLOOD UREA NITROGEN 24 MG/DL (9-23); CALCIUM LEVEL 8.9 MG/DL (8.3-10.6); CARBON DIOXIDE LEVEL 34 MMOL/L (20-31); CHLORIDE LEVEL 96 MMOL/L (98-107); CREATININE FOR GFR 0.78 MG/DL (0.55-1.30); GLOMERULAR FILTRATION RATE > 60.0 (>39); GLUCOSE, FASTING 114 MG/DL (74-106); POTASSIUM SERUM 4.2 MMOL/L (3.5-5.1); SODIUM LEVEL 134 MMOL/L (136-145); TOTAL PROTEIN 5.7 G/DL (5.7-8.2)
[2023-12-04] MEDS: methocarbamoL 750 MG TAB PO PRN ×2 (06:52→15:27)
[2023-12-04] MEDS: LABETALOL 100MG TAB PO SCH ×2 (09:22→20:19)
[2023-12-04] MEDS: FUROSEMIDE 40MG/4ML VIAL IV SCH (09:23)
[2023-12-04] MEDS: MIRALAX *UNIT DOSE* 17GM PACKET PO SCH ×2 (09:23→20:19)
[2023-12-04] MEDS ORDERED: tiZANidine 4 MG TAB PO PRN (09:40)
[2023-12-04 14:00] VITALS: BP 123/69; TEMP 98.4; O2SAT 94
[2023-12-04] MEDS: PANTOPRAZOLE 40MG VIAL IV SCH (15:27)
[2023-12-04 20:00] VITALS: BP 125/63; TEMP 98.6; O2SAT 92
[2023-12-04] MEDS: ENOXAPARIN 40MG/0.4ML SYRINGE (J1650 PER 10MG) SC SCH (20:19)
[2023-12-04 20:54] VITALS: O2SAT 93
[2023-12-05] MEDS: oxyCODONE 5MG TAB PO PRN ×2 (02:25→09:18)
[2023-12-05 06:00] VITALS: BP 155/78; TEMP 98.1; O2SAT 96
[2023-12-05 06:21] LABS: BASO # 0.1 10^3/uL (0.0-0.2); BASO % 0.7 % (0.0-1.0); EOS % 0.1 % (0.0-3.0); HEMATOCRIT 32.5 % (36.0-47.0); HEMOGLOBIN 10.3 g/dl (12.0-15.5); LYMPH # 1.7 10^3/uL (1.5-5.0); MEAN CORPUSCULAR HEMOGLOBIN 26.8 pg (27.0-33.0); MEAN CORPUSCULAR HGB CONC 31.7 g/dl (32.0-36.5); MEAN CORPUSCULAR VOLUME 84.6 fl (80.0-96.0); MONO # 0.8 10^3/uL (0.0-0.8); MONO % 9.2 % (2.0-8.0); NEUTROPHILS # 5.6 10^3/uL (1.5-8.5); NEUTROPHILS % 68.4 % (36.0-66.0); PLATELET COUNT, AUTOMATED 508 10^3/uL (150-450); RED BLOOD COUNT 3.84 10^6/uL (4.00-5.40); WHITE BLOOD COUNT 8.2 10^3/uL (4.0-10.0)
[2023-12-05 06:43] LABS: BLOOD UREA NITROGEN 24 MG/DL (9-23); CALCIUM LEVEL 8.9 MG/DL (8.3-10.6); CARBON DIOXIDE LEVEL 34 MMOL/L (20-31); CHLORIDE LEVEL 94 MMOL/L (98-107); CREATININE FOR GFR 0.76 MG/DL (0.55-1.30); GLOMERULAR FILTRATION RATE > 60.0 (>39); GLUCOSE, FASTING 115 MG/DL (74-106); POTASSIUM SERUM 4.4 MMOL/L (3.5-5.1); SODIUM LEVEL 133 MMOL/L (136-145)
[2023-12-05] MEDS: methocarbamoL 750 MG TAB PO PRN ×2 (06:46→13:54)
[2023-12-05] MEDS ORDERED: TORSEMIDE 20 MG TAB PO SCH (09:00)
[2023-12-05] MEDS: MIRALAX *UNIT DOSE* 17GM PACKET PO SCH (09:18)
[2023-12-05 09:21] VITALS: BP 151/64
[2023-12-05] MEDS: LABETALOL 100MG TAB PO SCH (09:21)
[2023-12-05] MEDS ORDERED: LABE100T6 PO (12:15)
[2023-12-05] MEDS ORDERED: TIZA10TA PO (12:15)
[2023-12-05] MEDS ORDERED: OXYC-517 PO (12:15)
[2023-12-05] MEDS ORDERED: METH-1165 PO (12:15)
[2023-12-05] MEDS ORDERED: FENT10PA TOP (12:15)
[2023-12-05] MEDS ORDERED: SENN1TAB41 PO (12:16)
[2023-12-05] MEDS ORDERED: COMBAER6 INH (12:16)
[2023-12-05] MEDS ORDERED: TORS20TA2 PO (12:16)
[2023-12-05] MEDS ORDERED: MIRA1POW3 PO (12:16)
[2023-12-05] MEDS ORDERED: ALB2.5NEB NEB (12:16)
[2023-12-05] MEDS: COMBIVENT RESPIMAT 100-20MCG INHALER 4GM INH SCH (12:20)
[2023-12-05 14:00] VITALS: BP 133/62; TEMP 98.8; O2SAT 93
[2023-12-05] MEDS ORDERED: FLUZONE HIGH DOSE(65YR UP)QUAD/PF 240MCG/0.7ML SYRINGE IM.IMMUN ONE (14:00)
== END 2023-12-05 14:28 | DRG 853 ==
LOC: M ED 16:20 → EDBD 16:20 → M ED INP 21:13 → M PCU 22:34 → M ICU 11-20 00:24 → M MSPAV 12-01 19:58
PROVIDERS: ADMIT Internal Medicine; ATTEND Internal Medicine Nephrology
PROC: 5A1955Z Respiratory Ventilation, Greater than 96 Consecutive Hours (ICD-10-PCS; 2023-11-19)
PROC: 0CDWXZ1 Extraction of Upper Tooth, Multiple, External Approach (ICD-10-PCS; 2023-11-21)
PROC: 0KBP0ZZ Excision of Left Hip Muscle, Open Approach (ICD-10-PCS; principal; 2023-11-24)
DX: A41.51 Sepsis due to Escherichia coli [E. coli] (principal); J96.02 Acute respiratory failure with hypercapnia; J96.01 Acute respiratory failure with hypoxia; G93.41 Metabolic encephalopathy; L89.223 Pressure ulcer of left hip, stage 3; L89.153 Pressure ulcer of sacral region, stage 3; Z68.44 Body mass index [BMI] 60.0-69.9, adult; N20.1 Calculus of ureter; N10 Acute pyelonephritis; E87.29 Other acidosis; N17.9 Acute kidney failure, unspecified; D69.3 Immune thrombocytopenic purpura; E87.0 Hyperosmolality and hypernatremia; E66.2 Morbid (severe) obesity with alveolar hypoventilation; B96.20 Unspecified Escherichia coli [E. coli] as the cause of diseases classified elsewhere; N20.0 Calculus of kidney; R31.9 Hematuria, unspecified; Z74.01 Bed confinement status; L08.9 Local infection of the skin and subcutaneous tissue, unspecified; N13.9 Obstructive and reflux uropathy, unspecified; E87.5 Hyperkalemia; K02.9 Dental caries, unspecified; N93.9 Abnormal uterine and vaginal bleeding, unspecified; K76.0 Fatty (change of) liver, not elsewhere classified; R13.10 Dysphagia, unspecified; Z79.899 Other long term (current) drug therapy

== ENCOUNTER → 2024-05-17 | Outpatient (REF) | payer MEDICARE, OTHER ==
[~2024-05-17] MED LIST: ALB2.5NEB NEB; COMBAER6 INH; FENT10PA TOP; LABE100T6 PO; METH-1165 PO; MIRA33506 PO; OXYC-517 PO; SENN1TAB85 PO; TIZA10TA PO; TORS20TA2 PO
[2024-05-17 15:40] LABS: APPEARANCE, URINE CLOUDY (CLEAR); BACTERIA, URINE AUTO 2+ (NEGATIVE); BILIRUBIN, URINE AUTO NEGATIVE (NEGATIVE); BLOOD, URINE BLOOD 2+ (NEGATIVE); COLOR, URINE YELLOW (YELLOW); GLUCOSE, URINE (UA) AUTO NEGATIVE (NEGATIVE); KETONE, URINE AUTO NEGATIVE (NEGATIVE); LEUKOCYTE ESTERASE, URINE AUTO 3+ (NEGATIVE); NITRITE, URINE AUTO POSITIVE (NEGATIVE); PROTEIN, URINE AUTO NEGATIVE (NEGATIVE); RBC, URINE AUTO 8 /HPF (0-3); SPECIFIC GRAVITY URINE AUTO 1.008 (1.002-1.035); SQUAMOUS EPITHELIAL CELL UR AU 0 /HPF (0-6); UROBILINOGEN, URINE AUTO 0.2 mg/dL (0.0-2.0); WBC, URINE AUTO 58 /HPF (0-3)
[2024-05-17 15:45] LABS: BASO # 0.1 10^3/uL (0.0-0.2); BASO % 0.7 % (0.0-1.0); EOS # 0.2 10^3/uL (0.0-0.5); EOS % 2.3 % (0.0-3.0); HEMATOCRIT 41.4 % (36.0-47.0); HEMOGLOBIN 13.3 g/dl (12.0-15.5); LYMPH # 2.4 10^3/uL (1.5-5.0); LYMPH % 29.1 % (24.0-44.0); MEAN CORPUSCULAR HEMOGLOBIN 27.9 pg (27.0-33.0); MEAN CORPUSCULAR HGB CONC 32.1 g/dl (32.0-36.5); MEAN CORPUSCULAR VOLUME 86.8 fl (80.0-96.0); MONO # 0.6 10^3/uL (0.0-0.8); MONO % 7.5 % (2.0-8.0); NEUTROPHILS # 4.9 10^3/uL (1.5-8.5); NEUTROPHILS % 60.2 % (36.0-66.0); PLATELET COUNT, AUTOMATED 287 10^3/uL (150-450); RED BLOOD COUNT 4.77 10^6/uL (4.00-5.40); WHITE BLOOD COUNT 8.2 10^3/uL (4.0-10.0)
[2024-05-17 16:15] LABS: BLOOD UREA NITROGEN 34 MG/DL (9-23); CALCIUM LEVEL 9.5 MG/DL (8.3-10.6); CARBON DIOXIDE LEVEL 31 MMOL/L (20-31); CHLORIDE LEVEL 100 MMOL/L (98-107); CREATININE FOR GFR 0.87 MG/DL (0.55-1.30); GLOMERULAR FILTRATION RATE > 60.0 (>39); GLUCOSE, FASTING 125 MG/DL (74-106); POTASSIUM SERUM 3.4 MMOL/L (3.5-5.1); SODIUM LEVEL 138 MMOL/L (136-145)
== END ==
LOC: M LAB REF 13:40
PROVIDERS: ATTEND Urology
DX: N20.1 Calculus of ureter (principal)

== ENCOUNTER → 2024-09-19 | Outpatient (REF) | payer MEDICARE, OTHER | LOC: M LAB REF 12:03 | PROVIDERS: ATTEND Nurse Practitioner Adult Health | DX: T83.098A Other mechanical complication of other urinary catheter, initial encounter (principal); Y84.6 Urinary catheterization as the cause of abnormal reaction of the patient, or of later complication, without mention of misadventure at the time of the procedure; Z79.899 Other long term (current) drug therapy ==

== ENCOUNTER → 2024-09-28 | Outpatient (REF) | payer MEDICARE, OTHER ==
[2024-09-28 18:06] LABS: APPEARANCE, URINE CLOUDY (CLEAR); BACTERIA, URINE AUTO NEGATIVE (NEGATIVE); BILIRUBIN, URINE AUTO NEGATIVE (NEGATIVE); BLOOD, URINE BLOOD 3+ (NEGATIVE); COLOR, URINE YELLOW (YELLOW); GLUCOSE, URINE (UA) AUTO NEGATIVE (NEGATIVE); KETONE, URINE AUTO NEGATIVE (NEGATIVE); LEUKOCYTE ESTERASE, URINE AUTO 3+ (NEGATIVE); NITRITE, URINE AUTO NEGATIVE (NEGATIVE); PROTEIN, URINE AUTO 2+ mg/dL (NEGATIVE); RBC, URINE AUTO TNTC /HPF (0-3); SPECIFIC GRAVITY URINE AUTO 1.012 (1.002-1.035); SQUAMOUS EPITHELIAL CELL UR AU 5 /HPF (0-6); UROBILINOGEN, URINE AUTO 0.2 mg/dL (0.0-2.0); WBC, URINE AUTO TNTC /HPF (0-3)
== END ==
LOC: M LAB REF 17:01
PROVIDERS: ATTEND Nurse Practitioner Adult Health
DX: I89.0 Lymphedema, not elsewhere classified (principal); Z79.899 Other long term (current) drug therapy

== ENCOUNTER → 2024-10-01 | Outpatient (REF) | payer MEDICARE, OTHER ==
[2024-10-01 12:13] LABS: APPEARANCE, URINE CLOUDY (CLEAR); BACTERIA, URINE AUTO 3+ (NEGATIVE); BILIRUBIN, URINE AUTO NEGATIVE (NEGATIVE); BLOOD, URINE BLOOD 3+ (NEGATIVE); COLOR, URINE AMBER (YELLOW); GLUCOSE, URINE (UA) AUTO NEGATIVE (NEGATIVE); KETONE, URINE AUTO NEGATIVE (NEGATIVE); LEUKOCYTE ESTERASE, URINE AUTO 3+ (NEGATIVE); MUCUS, URINE SMALL (NEGATIVE); NITRITE, URINE AUTO NEGATIVE (NEGATIVE); PROTEIN, URINE AUTO 3+ mg/dL (NEGATIVE); RBC, URINE AUTO TNTC /HPF (0-3); SPECIFIC GRAVITY URINE AUTO 1.016 (1.002-1.035); SQUAMOUS EPITHELIAL CELL UR AU 5 /HPF (0-6); UROBILINOGEN, URINE AUTO 0.2 mg/dL (0.0-2.0); WBC, URINE AUTO TNTC /HPF (0-3)
== END ==
LOC: M LAB REF 11:13
PROVIDERS: ATTEND Nurse Practitioner Adult Health
DX: N13.9 Obstructive and reflux uropathy, unspecified (principal)

== ENCOUNTER → 2024-10-11 | Outpatient (REF) | payer MEDICARE, OTHER ==
[2024-10-11 12:05] LABS: BASO # 0.1 10^3/uL (0.0-0.2); BASO % 0.8 % (0.0-1.0); EOS # 0.2 10^3/uL (0.0-0.5); EOS % 2.4 % (0.0-3.0); HEMATOCRIT 43.9 % (36.0-47.0); HEMOGLOBIN 13.5 g/dl (12.0-15.5); LYMPH # 2.7 10^3/uL (1.5-5.0); LYMPH % 32.1 % (24.0-44.0); MEAN CORPUSCULAR HEMOGLOBIN 26.9 pg (27.0-33.0); MEAN CORPUSCULAR HGB CONC 30.8 g/dl (32.0-36.5); MEAN CORPUSCULAR VOLUME 87.5 fl (80.0-96.0); MONO % 11.5 % (2.0-8.0); NEUTROPHILS # 4.4 10^3/uL (1.5-8.5); PLATELET COUNT, AUTOMATED 282 10^3/uL (150-450); RED BLOOD COUNT 5.02 10^6/uL (4.00-5.40); WHITE BLOOD COUNT 8.3 10^3/uL (4.0-10.0)
[2024-10-11 12:25] LABS: ALBUMIN 2.9 G/DL (3.2-5.2); ALKALINE PHOSPHATASE 107 U/L (35-104); ALT/SGPT 14 U/L (7.0-40); AST/SGOT 9 U/L (<34); BILIRUBIN,TOTAL 0.3 MG/DL (0.3-1.2); BLOOD UREA NITROGEN 21 MG/DL (9-23); CALCIUM LEVEL 9.8 MG/DL (8.3-10.6); CARBON DIOXIDE LEVEL 31 MMOL/L (20-31); CHLORIDE LEVEL 105 MMOL/L (98-107); CHOLESTEROL LEVEL 155 MG/DL (<200); CHOLESTEROL RISK RATIO 3.95 (<5); CREATININE FOR GFR 0.66 MG/DL (0.55-1.30); GLOMERULAR FILTRATION RATE > 60.0 (>39); GLUCOSE, FASTING 97 MG/DL (74-106); HDL CHOLESTEROL 39.2 MG/DL (>40); LDL CHOLESTEROL 88.4 MG/DL (<100); NON-HDL-C 115.8 MG/DL; POTASSIUM SERUM 4.3 MMOL/L (3.5-5.1); SODIUM LEVEL 140 MMOL/L (136-145); TOTAL PROTEIN 7.2 G/DL (5.7-8.2); TRIGLYCERIDES LEVEL 137 MG/DL (<150)
[2024-10-11 12:41] LABS: HEMOGLOBIN A1c 6.1 % (4.0-6.0)
== END ==
LOC: M LAB REF 11:41
PROVIDERS: ATTEND Nurse Practitioner Adult Health
DX: L89.152 Pressure ulcer of sacral region, stage 2 (principal); Y84.6 Urinary catheterization as the cause of abnormal reaction of the patient, or of later complication, without mention of misadventure at the time of the procedure; E11.9 Type 2 diabetes mellitus without complications; N39.0 Urinary tract infection, site not specified; S70.312D Abrasion, left thigh, subsequent encounter; Z79.899 Other long term (current) drug therapy; Z87.440 Personal history of urinary (tract) infections

== ENCOUNTER 2025-01-02 10:54 | Inpatient (IN) | payer MEDICARE, OTHER ==
[~2025-01-02] VITALS: Ht 157.5 cm; Wt 142.0 kg
[2025-01-02 13:04] LABS: BASO # 0.1 10^3/uL (0.0-0.2); BASO % 0.5 % (0.0-1.0); EOS # 0.1 10^3/uL (0.0-0.5); EOS % 0.9 % (0.0-3.0); HEMATOCRIT 32.9 % (36.0-47.0); HEMOGLOBIN 10.5 g/dl (12.0-15.5); LYMPH # 2.2 10^3/uL (1.5-5.0); LYMPH % 15.4 % (24.0-44.0); MEAN CORPUSCULAR HEMOGLOBIN 25.7 pg (27.0-33.0); MEAN CORPUSCULAR HGB CONC 31.9 g/dl (32.0-36.5); MEAN CORPUSCULAR VOLUME 80.4 fl (80.0-96.0); MONO # 1.1 10^3/uL (0.0-0.8); NEUTROPHILS # 10.4 10^3/uL (1.5-8.5); NEUTROPHILS % 73.6 % (36.0-66.0); PLATELET COUNT, AUTOMATED 514 10^3/uL (150-450); RED BLOOD COUNT 4.09 10^6/uL (4.00-5.40)
[2025-01-02 13:12] LABS: ERYTHROCYTE SEDIMENTATION RATE > 130 mm/hr (0-30)
[2025-01-02 13:16] LABS: INR 1.26; PROTHROMBIN TIME 16.1 SECONDS (12.5-14.5)
[2025-01-02 13:27] LABS: ALBUMIN 1.8 G/DL (3.2-5.2); BILIRUBIN,DIRECT 0.3 MG/DL (<0.4); BILIRUBIN,TOTAL 0.5 MG/DL (0.3-1.2); CALCIUM LEVEL 9.6 MG/DL (8.3-10.6); CREATININE FOR GFR 1.42 MG/DL (0.55-1.30); GLOMERULAR FILTRATION RATE 38.6 (>39); POTASSIUM SERUM 5.1 MMOL/L (3.5-5.1); TOTAL PROTEIN 6.6 G/DL (5.7-8.2)
[2025-01-02] MEDS: MORPHINE 2 MG/ML 1ML VIAL IV PRN (13:28)
[2025-01-02] MEDS ORDERED: ISOVUE-370 76% 100ML VIAL As Ordered ONE (13:34)
[2025-01-02 13:42] LABS: C REACTIVE PROTEIN QUANTITATIV 26.06 MG/DL (<1.0)
[2025-01-02] MEDS ORDERED: SENN-186 PO (14:11)
[2025-01-02] MEDS ORDERED: TIZA10TA PO (14:11)
[2025-01-02] MEDS ORDERED: TORS20TA2 PO (14:11)
[2025-01-02] MEDS ORDERED: SPIR12.9 INH (14:11)
[2025-01-02] MEDS ORDERED: OXYB10TA23 PO (14:11)
[2025-01-02] MEDS ORDERED: LEVA45AE INH (14:11)
[2025-01-02] MEDS ORDERED: ACET650T61 PO (14:16)
[2025-01-02] MEDS ORDERED: [UNRECOGNIZED DRUG - CODE] PO (14:16)
[2025-01-02] MEDS ORDERED: MIRA3350 PO (14:16)
[2025-01-02] MEDS ORDERED: HOME MED LIST COMPLETE! XX SCH (14:25)
[2025-01-02] MEDS: tiZANidine 4 MG TAB PO ONE (14:45)
[2025-01-02] MEDS: CEFEPIME HCL 2 GM in DEXTROSE 5% (D5W) ADV/MINI-BAG 50 ML IV ONE (14:51)
[2025-01-02] MEDS ORDERED: LIDOCAINE 1% MDV 20ML VIAL As Ordered ONE (15:27)
[2025-01-02] MEDS: VANCOMYCIN HCL 2,000 MG, VIAL MATE ADAPTER 1 EACH in NS 500 ML IV ONE (15:27)
[2025-01-02] MEDS: LR 1,000 ML IV ONE ×3 (16:00→19:50)
[2025-01-02] MEDS ORDERED: VANCOMYCIN INTERMITTENT/PULSE DOSING BY CLINICAL PHARMACIST PER DOSING PROTOCOL XX SCH (16:20)
[2025-01-02] MEDS: CLINDAMYCIN 900 MG in IV 1 EA IV SCH (17:50)
[2025-01-02] MEDS: NS (Normal Saline) 0.9% 1,000 ML IV ONE (18:30)
[2025-01-02] MEDS: LACTOBACILLUS ACIDOPHILUS CAP (BACID) PO SCH (19:13)
[2025-01-02] MEDS: ACETAMINOPHEN 325 MG TAB PO PRN (19:51)
[2025-01-02 20:53] LABS: KETONE, URINE AUTO RFX NEGATIVE (NEGATIVE); MUCUS, URINE RFX SMALL (NEGATIVE); NITRITE, URINE AUTO RFX NEGATIVE (NEGATIVE); RBC, URINE AUTO RFX 19 /HPF (0-3); SQUAM EPITHELIAL CELL UR AURFX 2 /HPF (0-6)
[2025-01-02 20:54] LABS: LEUKOCYTE ESTERASE UR AUTO RFX 3+ (NEGATIVE); WBC, URINE AUTO RFX 153 /HPF (0-3)
[2025-01-02] MEDS ORDERED: VANCOMYCIN HCL 1,000 MG, VIAL MATE ADAPTER 1 EACH in NS 250 ML IV SCH (23:00)
[2025-01-02 23:16] VITALS: BP 123/56; TEMP 97.4; O2SAT 95
[2025-01-03] VITALS (7 sets, daily range): BP systolic 100–118; BP diastolic 2–58; TEMP 97.4–98.8; O2SAT 91–96
[2025-01-03] MEDS: PIPERACILLIN/TAZOBACTAM SOD 4.5 GM in DEXTROSE 5% (D5W) ADV/MINI-BAG 50 ML IV SCH (02:49)
[2025-01-03 07:01] LABS: BASO # 0.1 10^3/uL (0.0-0.2); BASO % 0.7 % (0.0-1.0); EOS # 0.2 10^3/uL (0.0-0.5); EOS % 1.6 % (0.0-3.0); HEMATOCRIT 31.3 % (36.0-47.0); HEMOGLOBIN 9.8 g/dl (12.0-15.5); LYMPH # 1.7 10^3/uL (1.5-5.0); LYMPH % 17.2 % (24.0-44.0); MEAN CORPUSCULAR HEMOGLOBIN 25.1 pg (27.0-33.0); MEAN CORPUSCULAR HGB CONC 31.3 g/dl (32.0-36.5); MEAN CORPUSCULAR VOLUME 80.1 fl (80.0-96.0); MONO # 0.7 10^3/uL (0.0-0.8); MONO % 7.7 % (2.0-8.0); NEUTROPHILS # 6.8 10^3/uL (1.5-8.5); NEUTROPHILS % 70.2 % (36.0-66.0); PLATELET COUNT, AUTOMATED 565 10^3/uL (150-450); RED BLOOD COUNT 3.91 10^6/uL (4.00-5.40); WHITE BLOOD COUNT 9.7 10^3/uL (4.0-10.0)
[2025-01-03 07:11] LABS: ERYTHROCYTE SEDIMENTATION RATE > 130 mm/hr (0-30)
[2025-01-03 07:29] LABS: CALCIUM LEVEL 9.4 MG/DL (8.3-10.6); CREATININE FOR GFR 1.26 MG/DL (0.55-1.30); GLOMERULAR FILTRATION RATE 44.3 (>39); POTASSIUM SERUM 4.8 MMOL/L (3.5-5.1)
[2025-01-03 07:34] LABS: PROCALCITONIN 0.46 ng/ml
[2025-01-03 07:40] LABS: C REACTIVE PROTEIN QUANTITATIV 26.23 MG/DL (<1.0)
[2025-01-03] MEDS: oxyBUTYnin *DITROPAN XL* 5 MG TABCR PO SCH (08:37)
[2025-01-03] MEDS: LR 1,000 ML IV ONE ×3 (08:38→12:30)
[2025-01-03] MEDS: SODIUM CHLORIDE 0.9% INJ 10 ML SYR XX SCH (09:41)
[2025-01-03] MEDS: KETOROLAC 30 MG/ML 1ML VIAL IV ONE (12:26)
[2025-01-04] MEDS: VANCOMYCIN HCL 1,250 MG, VIAL MATE ADAPTER 1 EACH in NS 250 ML IV SCH (00:03)
[2025-01-04 03:46] VITALS: BP 117/56; TEMP 97.9; O2SAT 93
[2025-01-04 07:57] VITALS: BP 122/54; TEMP 97.4; O2SAT 94
[2025-01-04] MEDS: TIOTROPIUM INHALER/CAPSULE (SPIRIVA) INH SCH (08:00)
[2025-01-04 08:19] LABS: BASO # 0.1 10^3/uL (0.0-0.2); BASO % 1.1 % (0.0-1.0); EOS # 0.5 10^3/uL (0.0-0.5); HEMATOCRIT 28.9 % (36.0-47.0); HEMOGLOBIN 9.1 g/dl (12.0-15.5); LYMPH # 2.2 10^3/uL (1.5-5.0); LYMPH % 26.9 % (24.0-44.0); MEAN CORPUSCULAR HEMOGLOBIN 25.3 pg (27.0-33.0); MEAN CORPUSCULAR HGB CONC 31.5 g/dl (32.0-36.5); MEAN CORPUSCULAR VOLUME 80.5 fl (80.0-96.0); MONO # 0.9 10^3/uL (0.0-0.8); MONO % 10.2 % (2.0-8.0); NEUTROPHILS # 4.3 10^3/uL (1.5-8.5); NEUTROPHILS % 51.1 % (36.0-66.0); PLATELET COUNT, AUTOMATED 564 10^3/uL (150-450); RED BLOOD COUNT 3.59 10^6/uL (4.00-5.40); WHITE BLOOD COUNT 8.3 10^3/uL (4.0-10.0)
[2025-01-04 08:24] LABS: ERYTHROCYTE SEDIMENTATION RATE > 130 mm/hr (0-30)
[2025-01-04 08:54] LABS: C REACTIVE PROTEIN QUANTITATIV 20.07 MG/DL (<1.0); CALCIUM LEVEL 9.1 MG/DL (8.3-10.6); CREATININE FOR GFR 1.33 MG/DL (0.55-1.30); GLOMERULAR FILTRATION RATE 41.6 (>39); POTASSIUM SERUM 4.9 MMOL/L (3.5-5.1)
[2025-01-04 10:18] LABS: VANCOMYCIN RANDOM 15.1 UG/ML
[2025-01-04 12:00] VITALS: BP 121/61; TEMP 97.4; O2SAT 95
[2025-01-04] MEDS: MIRALAX *UNIT DOSE* 17GM PACKET PO SCH (15:22)
[2025-01-04] MEDS: HEPARIN SOD (PORCINE) 5000UNITS/ML 1ML VIAL/SYRINGE SQ SCH (15:22)
[2025-01-04 16:00] VITALS: BP 118/56; TEMP 97.6; O2SAT 96
[2025-01-04] MEDS: VANCOMYCIN HCL 750 MG, VIAL MATE ADAPTER 1 EACH in NS 250 ML IV SCH (16:50)
[2025-01-04 19:53] VITALS: BP 139/60; TEMP 98.2; O2SAT 93
[2025-01-04] MEDS: tiZANidine 4 MG TAB PO SCH (20:24)
[2025-01-04] MEDS: SENNA 8.6 MG TAB (SENOKOT) PO SCH (20:24)
[2025-01-04] MEDS: CEFTAROLINE FOSAMIL 600 MG in DEXTROSE 5% (D5W) ADV/MINI-BAG 50 ML IV SCH (21:24)
[2025-01-04 23:40] VITALS: BP 117/59; TEMP 98; O2SAT 94
[2025-01-05 05:01] VITALS: BP 110/58; TEMP 97.4; O2SAT 96
[2025-01-05 05:44] LABS: HEMATOCRIT 29.8 % (36.0-47.0); MEAN CORPUSCULAR HEMOGLOBIN 24.9 pg (27.0-33.0); MEAN CORPUSCULAR HGB CONC 30.2 g/dl (32.0-36.5); MEAN CORPUSCULAR VOLUME 82.3 fl (80.0-96.0); PLATELET COUNT, AUTOMATED 568 10^3/uL (150-450); RED BLOOD COUNT 3.62 10^6/uL (4.00-5.40)
[2025-01-05 05:56] LABS: C REACTIVE PROTEIN QUANTITATIV 9.44 MG/DL (<1.0); CALCIUM LEVEL 8.9 MG/DL (8.3-10.6); CREATININE FOR GFR 1.29 MG/DL (0.55-1.30); GLOMERULAR FILTRATION RATE 43.1 (>39); POTASSIUM SERUM 5.1 MMOL/L (3.5-5.1)
[2025-01-05 06:49] LABS: EOSINOPHILS 8 % (0-3); HYPOCHROMASIA 1+; LYMPHOCYTES 27 % (16-44); MONOCYTES 11 % (0-5); NEUTROPHILS 49 % (28-66); PLATELET ESTIMATE INCREASED (NORMAL)
[2025-01-05 06:50] LABS: ANISOCYTOSIS 1+; POLYCHROMASIA 1+
[2025-01-05 06:55] LABS: ERYTHROCYTE SEDIMENTATION RATE > 130 mm/hr (0-30)
[2025-01-05 08:11] VITALS: BP 108/55; TEMP 97.8; O2SAT 96
[2025-01-05 11:54] VITALS: BP 109/57; TEMP 97.6; O2SAT 95
[2025-01-05 16:48] VITALS: BP 111/58; TEMP 97.9
[2025-01-05 20:17] VITALS: BP 120/57; TEMP 98.1; O2SAT 93
[2025-01-06 04:29] VITALS: BP 119/70; TEMP 97.2; O2SAT 96
[2025-01-06 05:35] LABS: BASO # 0.1 10^3/uL (0.0-0.2); BASO % 0.7 % (0.0-1.0); EOS # 0.1 10^3/uL (0.0-0.5); EOS % 0.7 % (0.0-3.0); LYMPH # 2.4 10^3/uL (1.5-5.0); LYMPH % 25.9 % (24.0-44.0); MEAN CORPUSCULAR HEMOGLOBIN 25.3 pg (27.0-33.0); MEAN CORPUSCULAR VOLUME 81.5 fl (80.0-96.0); MONO # 0.8 10^3/uL (0.0-0.8); MONO % 8.8 % (2.0-8.0); NEUTROPHILS # 5.3 10^3/uL (1.5-8.5); NEUTROPHILS % 56.6 % (36.0-66.0); PLATELET COUNT, AUTOMATED 534 10^3/uL (150-450); RED BLOOD COUNT 3.56 10^6/uL (4.00-5.40); WHITE BLOOD COUNT 9.4 10^3/uL (4.0-10.0)
[2025-01-06 05:48] LABS: ERYTHROCYTE SEDIMENTATION RATE > 130 mm/hr (0-30)
[2025-01-06 05:56] LABS: C REACTIVE PROTEIN QUANTITATIV 4.89 MG/DL (<1.0)
[2025-01-06 05:57] LABS: BLOOD UREA NITROGEN 36 MG/DL (9-23); CALCIUM LEVEL 8.9 MG/DL (8.3-10.6); CARBON DIOXIDE LEVEL 26 MMOL/L (20-31); CHLORIDE LEVEL 103 MMOL/L (98-107); CREATININE FOR GFR 1.43 MG/DL (0.55-1.30); GLOMERULAR FILTRATION RATE 38.3 (>39); GLUCOSE, FASTING 119 MG/DL (74-106); POTASSIUM SERUM 5.1 MMOL/L (3.5-5.1); SODIUM LEVEL 137 MMOL/L (136-145)
[2025-01-06 07:43] LABS: ALBUMIN 1.7 G/DL (3.2-5.2); ALKALINE PHOSPHATASE 129 U/L (35-104); ALT/SGPT 14 U/L (7.0-40); AST/SGOT < 8 U/L (<34); BILIRUBIN,DIRECT 0.2 MG/DL (<0.4); BILIRUBIN,TOTAL 0.3 MG/DL (0.3-1.2); TOTAL PROTEIN 5.9 G/DL (5.7-8.2)
[2025-01-06 07:55] VITALS: BP 130/60; TEMP 98.6; O2SAT 95
[2025-01-06 07:55] LABS: PROCALCITONIN 0.28 ng/ml
[2025-01-06] MEDS: LR 1,000 ML IV ONE (08:04)
[2025-01-06 12:05] VITALS: BP 124/68; TEMP 98.4; O2SAT 95
[2025-01-06 16:15] VITALS: BP 132/63; TEMP 98; O2SAT 96
[2025-01-06 20:00] VITALS: BP 130/62; TEMP 97.6; O2SAT 95
[2025-01-06] MEDS: LINEZOLID 600MG TABLET (ZYVOX) PO SCH (22:33)
[2025-01-06] MEDS: cefTRIAXone SOD 2 GM in DEXTROSE 5% (D5W) ADV/MINI-BAG 50 ML IV SCH (22:34)
[2025-01-07] VITALS (7 sets, daily range): BP systolic 112–162; BP diastolic 56–68; TEMP 96.8–98; O2SAT 94–97
[2025-01-07 08:09] LABS: BASO # 0.1 10^3/uL (0.0-0.2); BASO % 0.4 % (0.0-1.0); EOS % 0.3 % (0.0-3.0); HEMOGLOBIN 9.6 g/dl (12.0-15.5); LYMPH # 2.9 10^3/uL (1.5-5.0); LYMPH % 24.6 % (24.0-44.0); MEAN CORPUSCULAR HEMOGLOBIN 25.2 pg (27.0-33.0); MEAN CORPUSCULAR VOLUME 81.4 fl (80.0-96.0); MONO % 8.3 % (2.0-8.0); NEUTROPHILS # 6.7 10^3/uL (1.5-8.5); NEUTROPHILS % 57.3 % (36.0-66.0); PLATELET COUNT, AUTOMATED 529 10^3/uL (150-450); RED BLOOD COUNT 3.81 10^6/uL (4.00-5.40); WHITE BLOOD COUNT 11.7 10^3/uL (4.0-10.0)
[2025-01-07 08:36] LABS: ERYTHROCYTE SEDIMENTATION RATE > 130 mm/hr (0-30)
[2025-01-07 08:44] LABS: C REACTIVE PROTEIN QUANTITATIV 3.15 MG/DL (<1.0)
[2025-01-07 08:45] LABS: CALCIUM LEVEL 9.5 MG/DL (8.3-10.6); CREATININE FOR GFR 1.08 MG/DL (0.55-1.30); GLOMERULAR FILTRATION RATE 52.9 (>39); POTASSIUM SERUM 4.8 MMOL/L (3.5-5.1)
[2025-01-07] MEDS ORDERED: ISOVUE-300 61% 100ML VIAL As Ordered ONE (11:51)
[2025-01-08 04:14] VITALS: BP 121/59; TEMP 97.3; O2SAT 95
[2025-01-08 07:05] LABS: BASO # 0.1 10^3/uL (0.0-0.2); BASO % 1.1 % (0.0-1.0); EOS % 0.3 % (0.0-3.0); HEMATOCRIT 30.1 % (36.0-47.0); HEMOGLOBIN 9.4 g/dl (12.0-15.5); LYMPH # 2.4 10^3/uL (1.5-5.0); MEAN CORPUSCULAR HEMOGLOBIN 25.3 pg (27.0-33.0); MEAN CORPUSCULAR HGB CONC 31.2 g/dl (32.0-36.5); MEAN CORPUSCULAR VOLUME 80.9 fl (80.0-96.0); NEUTROPHILS # 7.9 10^3/uL (1.5-8.5); NEUTROPHILS % 63.2 % (36.0-66.0); PLATELET COUNT, AUTOMATED 484 10^3/uL (150-450); RED BLOOD COUNT 3.72 10^6/uL (4.00-5.40); WHITE BLOOD COUNT 12.6 10^3/uL (4.0-10.0)
[2025-01-08 07:38] LABS: BLOOD UREA NITROGEN 22 MG/DL (9-23); CALCIUM LEVEL 9.5 MG/DL (8.3-10.6); CARBON DIOXIDE LEVEL 24 MMOL/L (20-31); CHLORIDE LEVEL 103 MMOL/L (98-107); CREATININE FOR GFR 0.95 MG/DL (0.55-1.30); GLOMERULAR FILTRATION RATE > 60.0 (>39); GLUCOSE, FASTING 101 MG/DL (74-106); POTASSIUM SERUM 4.6 MMOL/L (3.5-5.1); SODIUM LEVEL 136 MMOL/L (136-145)
[2025-01-08 08:21] VITALS: BP 131/64; TEMP 97.7; O2SAT 95
[2025-01-08 10:44] LABS: C REACTIVE PROTEIN QUANTITATIV 2.48 MG/DL (<1.0)
[2025-01-08 10:52] LABS: PROCALCITONIN 0.15 ng/ml
[2025-01-08 12:00] VITALS: BP 109/59; TEMP 97.6; O2SAT 97
[2025-01-08 16:00] VITALS: BP 130/63; TEMP 98.3; O2SAT 95
[2025-01-08 20:28] VITALS: BP 130/61; TEMP 98.5; O2SAT 95
[2025-01-09 04:25] VITALS: BP 134/82; TEMP 98.4; O2SAT 95
[2025-01-09 07:50] LABS: HEMATOCRIT 30.5 % (36.0-47.0); HEMOGLOBIN 9.6 g/dl (12.0-15.5); MEAN CORPUSCULAR HEMOGLOBIN 25.5 pg (27.0-33.0); MEAN CORPUSCULAR HGB CONC 31.5 g/dl (32.0-36.5); MEAN CORPUSCULAR VOLUME 80.9 fl (80.0-96.0); PLATELET COUNT, AUTOMATED 471 10^3/uL (150-450); RED BLOOD COUNT 3.77 10^6/uL (4.00-5.40); WHITE BLOOD COUNT 12.3 10^3/uL (4.0-10.0)
[2025-01-09 08:36] LABS: ATYPICAL LYMPH 9 % (0-5); EOSINOPHILS 3 % (0-3); LYMPHOCYTES 9 % (16-44); METAMYELOCYTES 1 % (0-0); MONOCYTES 4 % (0-5); MYELOCYTES 2 % (0-0); NEUTROPHILS 70 % (28-66)
[2025-01-09 08:37] LABS: BLOOD UREA NITROGEN 20 MG/DL (9-23); CARBON DIOXIDE LEVEL 26 MMOL/L (20-31); CHLORIDE LEVEL 102 MMOL/L (98-107); CREATININE FOR GFR 0.96 MG/DL (0.55-1.30); GLOMERULAR FILTRATION RATE > 60.0 (>39); GLUCOSE, FASTING 100 MG/DL (74-106); PLATELET ESTIMATE INCREASED (NORMAL); POTASSIUM SERUM 4.4 MMOL/L (3.5-5.1); SODIUM LEVEL 136 MMOL/L (136-145)
[2025-01-09 08:38] LABS: ANISOCYTOSIS 1+
[2025-01-09] MEDS: TORSEMIDE 20 MG TAB PO SCH (08:59)
[2025-01-09] MEDS ORDERED: SODIUM CHLORIDE 0.9% INJ 10 ML SYR IV PRN (11:25)
[2025-01-09] MEDS: KETOROLAC 30 MG/ML 1ML VIAL IV PRN (11:48)
[2025-01-09 12:00] VITALS: BP 109/58; TEMP 97.9; O2SAT 95
[2025-01-09] MEDS: SODIUM CHLORIDE 0.9% INJ 10 ML SYR IV SCH (17:34)
[2025-01-09 20:30] VITALS: BP 138/76; TEMP 98.6; O2SAT 96
[2025-01-10 03:50] VITALS: BP 116/57; TEMP 98.4; O2SAT 93
[2025-01-10 05:40] LABS: BASO # 0.2 10^3/uL (0.0-0.2); BASO % 1.5 % (0.0-1.0); EOS # 0.1 10^3/uL (0.0-0.5); EOS % 0.7 % (0.0-3.0); HEMATOCRIT 29.6 % (36.0-47.0); HEMOGLOBIN 9.1 g/dl (12.0-15.5); LYMPH # 2.6 10^3/uL (1.5-5.0); LYMPH % 25.2 % (24.0-44.0); MEAN CORPUSCULAR HEMOGLOBIN 25.3 pg (27.0-33.0); MEAN CORPUSCULAR HGB CONC 30.7 g/dl (32.0-36.5); MEAN CORPUSCULAR VOLUME 82.2 fl (80.0-96.0); MONO # 0.9 10^3/uL (0.0-0.8); MONO % 9.2 % (2.0-8.0); NEUTROPHILS # 5.9 10^3/uL (1.5-8.5); NEUTROPHILS % 58.4 % (36.0-66.0); PLATELET COUNT, AUTOMATED 452 10^3/uL (150-450); WHITE BLOOD COUNT 10.1 10^3/uL (4.0-10.0)
[2025-01-10 05:57] LABS: ERYTHROCYTE SEDIMENTATION RATE 129 mm/hr (0-30)
[2025-01-10 06:09] LABS: C REACTIVE PROTEIN QUANTITATIV 2.62 MG/DL (<1.0); CALCIUM LEVEL 9.1 MG/DL (8.3-10.6); CREATININE FOR GFR 1.18 MG/DL (0.55-1.30); GLOMERULAR FILTRATION RATE 47.8 (>39); POTASSIUM SERUM 4.4 MMOL/L (3.5-5.1)
[2025-01-10 06:20] LABS: PROCALCITONIN 0.16 ng/ml
[2025-01-10] MEDS: KETOROLAC 30 MG/ML 1ML VIAL IV PRN (06:25)
[2025-01-10 08:11] VITALS: BP 133/71; TEMP 98.4; O2SAT 94
[2025-01-10 12:00] VITALS: BP 115/64; TEMP 97.9; O2SAT 97
[2025-01-11 04:10] VITALS: BP 116/51; TEMP 97.9; O2SAT 96
[2025-01-11 05:30] LABS: BASO # 0.1 10^3/uL (0.0-0.2); EOS # 0.1 10^3/uL (0.0-0.5); EOS % 0.7 % (0.0-3.0); HEMATOCRIT 28.8 % (36.0-47.0); HEMOGLOBIN 8.9 g/dl (12.0-15.5); LYMPH # 2.3 10^3/uL (1.5-5.0); LYMPH % 26.7 % (24.0-44.0); MEAN CORPUSCULAR HEMOGLOBIN 25.4 pg (27.0-33.0); MEAN CORPUSCULAR HGB CONC 30.9 g/dl (32.0-36.5); MEAN CORPUSCULAR VOLUME 82.3 fl (80.0-96.0); MONO # 0.8 10^3/uL (0.0-0.8); MONO % 9.2 % (2.0-8.0); NEUTROPHILS # 5.3 10^3/uL (1.5-8.5); NEUTROPHILS % 60.2 % (36.0-66.0); PLATELET COUNT, AUTOMATED 423 10^3/uL (150-450); WHITE BLOOD COUNT 8.7 10^3/uL (4.0-10.0)
[2025-01-11 06:02] LABS: CREATININE FOR GFR 1.17 MG/DL (0.55-1.30); GLOMERULAR FILTRATION RATE 48.3 (>39); POTASSIUM SERUM 4.2 MMOL/L (3.5-5.1)
[2025-01-11 08:00] VITALS: BP 123/71; TEMP 98.1; O2SAT 95
[2025-01-11 15:00] VITALS: BP 134/73; TEMP 97.9; O2SAT 95
[2025-01-11 19:54] VITALS: BP 132/72; TEMP 98.1; O2SAT 98
[2025-01-12 04:53] VITALS: BP 128/70; TEMP 98.1; O2SAT 97
[2025-01-12 06:11] LABS: BASO # 0.1 10^3/uL (0.0-0.2); BASO % 1.9 % (0.0-1.0); EOS % 0.5 % (0.0-3.0); HEMATOCRIT 30.3 % (36.0-47.0); HEMOGLOBIN 9.3 g/dl (12.0-15.5); LYMPH # 2.2 10^3/uL (1.5-5.0); LYMPH % 29.5 % (24.0-44.0); MEAN CORPUSCULAR HEMOGLOBIN 25.5 pg (27.0-33.0); MEAN CORPUSCULAR HGB CONC 30.7 g/dl (32.0-36.5); MONO # 0.8 10^3/uL (0.0-0.8); MONO % 10.5 % (2.0-8.0); NEUTROPHILS # 4.1 10^3/uL (1.5-8.5); NEUTROPHILS % 56.8 % (36.0-66.0); PLATELET COUNT, AUTOMATED 440 10^3/uL (150-450); RED BLOOD COUNT 3.65 10^6/uL (4.00-5.40); WHITE BLOOD COUNT 7.3 10^3/uL (4.0-10.0)
[2025-01-12 06:31] LABS: C REACTIVE PROTEIN QUANTITATIV 1.81 MG/DL (<1.0)
[2025-01-12 06:33] LABS: CALCIUM LEVEL 9.5 MG/DL (8.3-10.6); CREATININE FOR GFR 1.26 MG/DL (0.55-1.30); GLOMERULAR FILTRATION RATE 44.3 (>39); POTASSIUM SERUM 4.3 MMOL/L (3.5-5.1)
[2025-01-12 06:38] LABS: PROCALCITONIN 0.14 ng/ml
[2025-01-12 12:00] VITALS: BP 125/70; TEMP 97.9; O2SAT 96
[2025-01-12 20:05] VITALS: BP 127/71; TEMP 98.6; O2SAT 98
[2025-01-13 04:14] VITALS: BP 125/69; TEMP 97.9; O2SAT 95
[2025-01-13 05:47] LABS: BASO # 0.1 10^3/uL (0.0-0.2); BASO % 2.1 % (0.0-1.0); EOS # 0.1 10^3/uL (0.0-0.5); EOS % 1.3 % (0.0-3.0); HEMATOCRIT 29.1 % (36.0-47.0); HEMOGLOBIN 9.1 g/dl (12.0-15.5); MEAN CORPUSCULAR HEMOGLOBIN 26.1 pg (27.0-33.0); MEAN CORPUSCULAR HGB CONC 31.3 g/dl (32.0-36.5); MEAN CORPUSCULAR VOLUME 83.4 fl (80.0-96.0); MONO # 0.7 10^3/uL (0.0-0.8); MONO % 10.7 % (2.0-8.0); NEUTROPHILS # 3.8 10^3/uL (1.5-8.5); NEUTROPHILS % 56.5 % (36.0-66.0); PLATELET COUNT, AUTOMATED 386 10^3/uL (150-450); RED BLOOD COUNT 3.49 10^6/uL (4.00-5.40); WHITE BLOOD COUNT 6.7 10^3/uL (4.0-10.0)
[2025-01-13 06:12] LABS: CALCIUM LEVEL 9.1 MG/DL (8.3-10.6); CREATININE FOR GFR 1.39 MG/DL (0.55-1.30); GLOMERULAR FILTRATION RATE 39.6 (>39)
[2025-01-13] MEDS ORDERED: NALOXONE INJ 0.4MG/1ML VIAL IV PRN (07:40)
[2025-01-13] MEDS ORDERED: oxyCODONE 5MG TAB PO PRN (07:40)
[2025-01-13] MEDS: LR 1,000 ML IV ONE ×2 (08:11→11:04)
[2025-01-13 12:00] VITALS: BP 125/73; TEMP 97.5; O2SAT 97
[2025-01-13 12:25] LABS: CLOSTRIDIUM DIFFICILE PCR NEGATIVE (NEGATIVE)
[2025-01-13 13:08] LABS: CALCIUM LEVEL 8.9 MG/DL (8.3-10.6); CREATININE FOR GFR 1.22 MG/DL (0.55-1.30); POTASSIUM SERUM 4.3 MMOL/L (3.5-5.1)
[2025-01-13] MEDS: LOPERAMIDE 2 MG CAPLET PO PRN (16:30)
[2025-01-13 20:40] VITALS: BP 128/72; TEMP 98.6; O2SAT 95
[2025-01-14 04:10] VITALS: BP 115/61; TEMP 97.9; O2SAT 94
[2025-01-14 05:44] LABS: BASO # 0.1 10^3/uL (0.0-0.2); BASO % 1.9 % (0.0-1.0); EOS % 0.3 % (0.0-3.0); HEMATOCRIT 27.9 % (36.0-47.0); HEMOGLOBIN 8.6 g/dl (12.0-15.5); LYMPH # 1.8 10^3/uL (1.5-5.0); LYMPH % 26.3 % (24.0-44.0); MEAN CORPUSCULAR HEMOGLOBIN 25.5 pg (27.0-33.0); MEAN CORPUSCULAR HGB CONC 30.8 g/dl (32.0-36.5); MEAN CORPUSCULAR VOLUME 82.8 fl (80.0-96.0); MONO # 0.6 10^3/uL (0.0-0.8); MONO % 9.1 % (2.0-8.0); NEUTROPHILS # 4.2 10^3/uL (1.5-8.5); NEUTROPHILS % 62.3 % (36.0-66.0); PLATELET COUNT, AUTOMATED 352 10^3/uL (150-450); RED BLOOD COUNT 3.37 10^6/uL (4.00-5.40); WHITE BLOOD COUNT 6.7 10^3/uL (4.0-10.0)
[2025-01-14 06:08] LABS: C REACTIVE PROTEIN QUANTITATIV 1.31 MG/DL (<1.0); CALCIUM LEVEL 9.4 MG/DL (8.3-10.6); CREATININE FOR GFR 1.17 MG/DL (0.55-1.30); GLOMERULAR FILTRATION RATE 48.3 (>39); POTASSIUM SERUM 4.1 MMOL/L (3.5-5.1)
[2025-01-14 06:15] LABS: PROCALCITONIN 0.15 ng/ml
[2025-01-14 12:00] VITALS: BP 112/61; TEMP 98.1; O2SAT 95
[2025-01-14] MEDS ORDERED: NYSTATIN 100,000 UNITS/GM TOPICAL PWD 15GM TOP PRN (12:00)
[2025-01-14] MEDS: FUROSEMIDE 20MG/2ML VIAL IV ONE (17:40)
[2025-01-15 04:10] VITALS: BP 114/61; TEMP 97.9; O2SAT 95
[2025-01-15 05:43] LABS: BASO # 0.1 10^3/uL (0.0-0.2); BASO % 2.3 % (0.0-1.0); EOS # 0.4 10^3/uL (0.0-0.5); EOS % 6.8 % (0.0-3.0); HEMATOCRIT 28.2 % (36.0-47.0); HEMOGLOBIN 8.9 g/dl (12.0-15.5); LYMPH # 1.8 10^3/uL (1.5-5.0); LYMPH % 34.7 % (24.0-44.0); MEAN CORPUSCULAR HEMOGLOBIN 26.2 pg (27.0-33.0); MEAN CORPUSCULAR HGB CONC 31.6 g/dl (32.0-36.5); MEAN CORPUSCULAR VOLUME 82.9 fl (80.0-96.0); MONO # 0.6 10^3/uL (0.0-0.8); MONO % 11.6 % (2.0-8.0); NEUTROPHILS # 2.3 10^3/uL (1.5-8.5); PLATELET COUNT, AUTOMATED 359 10^3/uL (150-450); WHITE BLOOD COUNT 5.3 10^3/uL (4.0-10.0)
[2025-01-15 06:04] LABS: CALCIUM LEVEL 9.5 MG/DL (8.3-10.6); GLOMERULAR FILTRATION RATE 57.9 (>39); POTASSIUM SERUM 4.2 MMOL/L (3.5-5.1)
[2025-01-15] MEDS ORDERED: RISATAB3 PO (06:24)
[2025-01-15] MEDS ORDERED: CEFT2INJ4 IV (06:24)
[2025-01-15] MEDS ORDERED: LINE1TAB6 PO (06:24)
[2025-01-15] MEDS: TORSEMIDE 10 MG TABLET PO SCH (09:13)
[2025-01-15] MEDS ORDERED: NYST10006 TOP (12:33)
[2025-01-15] MEDS ORDERED: TORS10TA3 PO (12:35)
[2025-01-15] MEDS ORDERED: TALK1KIT MC (12:35)
== END 2025-01-15 20:00 | disposition home health service (06) | DRG 871 ==
LOC: M ED 10:54 → EDBD 10:54 → M ED INP 15:10 → EEVIPCON 15:10 → M PCU 22:44 → M MSPAV 01-08 21:23
PROVIDERS: ADMIT General Practice; ATTEND General Practice
PROC: 0W9F30Z Drainage of Abdominal Wall with Drainage Device, Percutaneous Approach (ICD-10-PCS; principal; 2025-01-03)
PROC: 0Y9C30Z Drainage of Right Upper Leg with Drainage Device, Percutaneous Approach (ICD-10-PCS; 2025-01-03)
PROC: 0W9F30Z Drainage of Abdominal Wall with Drainage Device, Percutaneous Approach (ICD-10-PCS; 2025-01-07)
PROC: 0Y9C30Z Drainage of Right Upper Leg with Drainage Device, Percutaneous Approach (ICD-10-PCS; 2025-01-07)
DX: A41.9 Sepsis, unspecified organism (principal); K68.19 Other retroperitoneal abscess; K68.12 Psoas muscle abscess; L89.223 Pressure ulcer of left hip, stage 3; L89.323 Pressure ulcer of left buttock, stage 3; L89.313 Pressure ulcer of right buttock, stage 3; L89.213 Pressure ulcer of right hip, stage 3; A48.0 Gas gangrene; L02.31 Cutaneous abscess of buttock; L02.211 Cutaneous abscess of abdominal wall; M86.18 Other acute osteomyelitis, other site; E66.2 Morbid (severe) obesity with alveolar hypoventilation; J98.11 Atelectasis; Z68.43 Body mass index [BMI] 50.0-59.9, adult; M00.9 Pyogenic arthritis, unspecified; E87.20 Acidosis, unspecified; M60.9 Myositis, unspecified; R13.10 Dysphagia, unspecified; Z74.01 Bed confinement status; I10 Essential (primary) hypertension; B96.4 Proteus (mirabilis) (morganii) as the cause of diseases classified elsewhere; B96.20 Unspecified Escherichia coli [E. coli] as the cause of diseases classified elsewhere; B96.1 Klebsiella pneumoniae [K. pneumoniae] as the cause of diseases classified elsewhere; J44.9 Chronic obstructive pulmonary disease, unspecified; B37.2 Candidiasis of skin and nail; K74.60 Unspecified cirrhosis of liver; R31.9 Hematuria, unspecified; K76.0 Fatty (change of) liver, not elsewhere classified; Z79.899 Other long term (current) drug therapy

== ENCOUNTER → 2025-01-21 | Outpatient (REF) | payer MEDICARE, OTHER ==
[~2025-01-21] MED LIST changes: +ACET650T61 PO; +CEFT2INJ4 IV; +LEVA45AE INH; +LINE1TAB6 PO; +MIRA3350 PO; +NYST10006 TOP; +OXYB10TA23 PO; +RISATAB3 PO; +SENN-186 PO; +SPIR12.9 INH; +TALK1KIT MC; +TORS10TA3 PO; +[UNRECOGNIZED DRUG - CODE] PO
[2025-01-21 12:28] LABS: HEMATOCRIT 28.7 % (36.0-47.0); MEAN CORPUSCULAR HEMOGLOBIN 26.4 pg (27.0-33.0); MEAN CORPUSCULAR HGB CONC 31.4 g/dl (32.0-36.5); MEAN CORPUSCULAR VOLUME 84.2 fl (80.0-96.0); PLATELET COUNT, AUTOMATED 205 10^3/uL (150-450); RED BLOOD COUNT 3.41 10^6/uL (4.00-5.40); WHITE BLOOD COUNT 5.7 10^3/uL (4.0-10.0)
[2025-01-21 12:39] LABS: ERYTHROCYTE SEDIMENTATION RATE 83 mm/hr (0-30)
[2025-01-21 13:01] LABS: C REACTIVE PROTEIN QUANTITATIV 1.09 MG/DL (<1.0)
[2025-01-21 13:02] LABS: ALBUMIN 2.7 G/DL (3.2-5.2); ALKALINE PHOSPHATASE 82 U/L (35-104); ALT/SGPT 17 U/L (7.0-40); AST/SGOT 12 U/L (<34); BILIRUBIN,TOTAL 0.4 MG/DL (0.3-1.2); BLOOD UREA NITROGEN 23 MG/DL (9-23); CARBON DIOXIDE LEVEL 34 MMOL/L (20-31); CHLORIDE LEVEL 94 MMOL/L (98-107); CREATININE FOR GFR 0.83 MG/DL (0.55-1.30); GLOMERULAR FILTRATION RATE > 60.0 (>39); GLUCOSE, FASTING 108 MG/DL (74-106); POTASSIUM SERUM 3.6 MMOL/L (3.5-5.1); SODIUM LEVEL 140 MMOL/L (136-145); TOTAL PROTEIN 6.6 G/DL (5.7-8.2)
== END ==
LOC: M LAB REF 11:21
PROVIDERS: ATTEND Internal Medicine Infectious Disease
DX: N10 Acute pyelonephritis (principal)

== ENCOUNTER → 2025-01-29 | Outpatient (REF) | payer MEDICARE, OTHER ==
[2025-01-29 11:04] LABS: HEMATOCRIT 23.7 % (36.0-47.0); HEMOGLOBIN 7.4 g/dl (12.0-15.5); MEAN CORPUSCULAR HEMOGLOBIN 25.9 pg (27.0-33.0); MEAN CORPUSCULAR HGB CONC 31.2 g/dl (32.0-36.5); MEAN CORPUSCULAR VOLUME 82.9 fl (80.0-96.0); PLATELET COUNT, AUTOMATED 155 10^3/uL (150-450); RED BLOOD COUNT 2.86 10^6/uL (4.00-5.40); WHITE BLOOD COUNT 4.4 10^3/uL (4.0-10.0)
[2025-01-29 11:11] LABS: ERYTHROCYTE SEDIMENTATION RATE 54 mm/hr (0-30)
[2025-01-29 11:34] LABS: ALBUMIN 2.7 G/DL (3.2-5.2); ALKALINE PHOSPHATASE 97 U/L (35-104); ALT/SGPT 20 U/L (7.0-40); AST/SGOT 13 U/L (<34); BILIRUBIN,TOTAL 0.4 MG/DL (0.3-1.2); BLOOD UREA NITROGEN 27 MG/DL (9-23); CALCIUM LEVEL 8.9 MG/DL (8.3-10.6); CARBON DIOXIDE LEVEL 34 MMOL/L (20-31); CHLORIDE LEVEL 94 MMOL/L (98-107); CREATININE FOR GFR 0.84 MG/DL (0.55-1.30); GLOMERULAR FILTRATION RATE > 60.0 (>39); GLUCOSE, FASTING 105 MG/DL (74-106); SODIUM LEVEL 138 MMOL/L (136-145); TOTAL PROTEIN 6.2 G/DL (5.7-8.2)
[2025-01-30 08:35] LABS: IRON (FE) 260 UG/DL (50-170); PERCENT SATURATION 90.6 % (13.2-45.0); TOTAL IRON BINDING CAPACITY 287 UG/DL (250-425)
[2025-01-30 08:37] LABS: VITAMIN B12 LEVEL 559 PG/ML (211-911)
[2025-01-30 08:38] LABS: FOLATE 5.5 NG/ML (>5.4)
== END ==
LOC: M LAB REF 10:15
PROVIDERS: ATTEND Internal Medicine Infectious Disease
DX: D64.9 Anemia, unspecified (principal); N10 Acute pyelonephritis

== ENCOUNTER → 2025-02-01 | Outpatient (CLI) | payer MEDICARE, OTHER ==
[~2025-02-01] MED LIST changes: +ISOVUE-300 61% 100ML VIAL As Ordered ONE; +LIDOCAINE 1% MDV 20ML VIAL As Ordered ONE
[2025-02-01 12:45] VITALS: BP 147/65; TEMP 98; O2SAT 93
== END ==
LOC: M IRPRO 12:26
PROVIDERS: ATTEND Radiology Diagnostic Radiology
DX: K65.1 Peritoneal abscess (principal)
CPT/HCPCS: 49423; Q9967

== ENCOUNTER → 2025-02-06 | Outpatient (REF) | payer MEDICARE, OTHER ==
[~2025-02-06] MED LIST changes: -ISOVUE-300 61% 100ML VIAL As Ordered ONE; -LIDOCAINE 1% MDV 20ML VIAL As Ordered ONE
[2025-02-06 11:43] LABS: HEMATOCRIT 24.8 % (36.0-47.0); HEMOGLOBIN 7.3 g/dl (12.0-15.5); MEAN CORPUSCULAR HEMOGLOBIN 26.1 pg (27.0-33.0); MEAN CORPUSCULAR HGB CONC 29.4 g/dl (32.0-36.5); MEAN CORPUSCULAR VOLUME 88.6 fl (80.0-96.0); PLATELET COUNT, AUTOMATED 253 10^3/uL (150-450); WHITE BLOOD COUNT 9.7 10^3/uL (4.0-10.0)
[2025-02-06 11:48] LABS: ERYTHROCYTE SEDIMENTATION RATE 68 mm/hr (0-30)
[2025-02-06 11:59] LABS: ALBUMIN 2.9 G/DL (3.2-5.2); ALKALINE PHOSPHATASE 99 U/L (35-104); ALT/SGPT 12 U/L (7.0-40); AST/SGOT 8 U/L (<34); BILIRUBIN,TOTAL 0.2 MG/DL (0.3-1.2); BLOOD UREA NITROGEN 12 MG/DL (9-23); C REACTIVE PROTEIN QUANTITATIV 0.65 MG/DL (<1.0); CALCIUM LEVEL 8.7 MG/DL (8.3-10.6); CARBON DIOXIDE LEVEL 35 MMOL/L (20-31); CHLORIDE LEVEL 99 MMOL/L (98-107); CREATININE FOR GFR 0.83 MG/DL (0.55-1.30); GLOMERULAR FILTRATION RATE > 60.0 (>39); GLUCOSE, FASTING 105 MG/DL (74-106); POTASSIUM SERUM 3.9 MMOL/L (3.5-5.1); SODIUM LEVEL 141 MMOL/L (136-145); TOTAL PROTEIN 6.4 G/DL (5.7-8.2)
== END ==
LOC: M LAB REF 10:37
PROVIDERS: ATTEND Internal Medicine Infectious Disease
DX: M00.88 Arthritis due to other bacteria, vertebrae (principal); B96.20 Unspecified Escherichia coli [E. coli] as the cause of diseases classified elsewhere

== ENCOUNTER → 2025-02-11 | Outpatient (REF) | payer MEDICARE, OTHER ==
[2025-02-11 15:13] LABS: HEMATOCRIT 27.4 % (36.0-47.0); MEAN CORPUSCULAR HEMOGLOBIN 27.2 pg (27.0-33.0); MEAN CORPUSCULAR HGB CONC 29.2 g/dl (32.0-36.5); MEAN CORPUSCULAR VOLUME 93.2 fl (80.0-96.0); PLATELET COUNT, AUTOMATED 337 10^3/uL (150-450); RED BLOOD COUNT 2.94 10^6/uL (4.00-5.40); WHITE BLOOD COUNT 8.2 10^3/uL (4.0-10.0)
[2025-02-11 15:19] LABS: ERYTHROCYTE SEDIMENTATION RATE 85 mm/hr (0-30)
[2025-02-11 15:33] LABS: ALBUMIN 2.7 G/DL (3.2-5.2); ALKALINE PHOSPHATASE 88 U/L (35-104); ALT/SGPT 12 U/L (7.0-40); AST/SGOT 8 U/L (<34); BILIRUBIN,TOTAL 0.2 MG/DL (0.3-1.2); BLOOD UREA NITROGEN 12 MG/DL (9-23); C REACTIVE PROTEIN QUANTITATIV 1.09 MG/DL (<1.0); CALCIUM LEVEL 8.8 MG/DL (8.3-10.6); CARBON DIOXIDE LEVEL 34 MMOL/L (20-31); CHLORIDE LEVEL 102 MMOL/L (98-107); CREATININE FOR GFR 0.74 MG/DL (0.55-1.30); GLOMERULAR FILTRATION RATE > 60.0 (>39); GLUCOSE, FASTING 101 MG/DL (74-106); POTASSIUM SERUM 4.1 MMOL/L (3.5-5.1); SODIUM LEVEL 143 MMOL/L (136-145); TOTAL PROTEIN 6.2 G/DL (5.7-8.2)
== END ==
LOC: M LAB REF 14:32
PROVIDERS: ATTEND Internal Medicine Infectious Disease
DX: A41.9 Sepsis, unspecified organism (principal); L03.319 Cellulitis of trunk, unspecified; L02.219 Cutaneous abscess of trunk, unspecified

== ENCOUNTER → 2025-02-19 | Outpatient (CLI) | payer MEDICARE, OTHER ==
[2025-02-19 10:15] VITALS: TEMP 98.9
[2025-02-19] MEDS: ISOVUE-300 61% 100ML VIAL IV STA (14:13)
[2025-02-19] MEDS: LIDOCAINE 1% MDV 20ML VIAL SC STA (14:13)
[2025-02-19 14:20] VITALS: BP 157/72; O2SAT 93
== END ==
LOC: M IRPRO 09:47
PROVIDERS: ATTEND Radiology Diagnostic Radiology
DX: K65.1 Peritoneal abscess (principal)
CPT/HCPCS: 49424; 76080; Q9967

== ENCOUNTER → 2025-02-25 | Outpatient (REF) | payer MEDICARE, OTHER ==
[2025-02-25 11:48] LABS: HEMATOCRIT 38.8 % (36.0-47.0); HEMOGLOBIN 11.4 g/dl (12.0-15.5); MEAN CORPUSCULAR HEMOGLOBIN 27.7 pg (27.0-33.0); MEAN CORPUSCULAR HGB CONC 29.4 g/dl (32.0-36.5); MEAN CORPUSCULAR VOLUME 94.2 fl (80.0-96.0); PLATELET COUNT, AUTOMATED 314 10^3/uL (150-450); RED BLOOD COUNT 4.12 10^6/uL (4.00-5.40); WHITE BLOOD COUNT 12.6 10^3/uL (4.0-10.0)
[2025-02-25 11:53] LABS: ERYTHROCYTE SEDIMENTATION RATE 105 mm/hr (0-30)
[2025-02-25 12:21] LABS: ALBUMIN 3.1 G/DL (3.2-5.2); ALKALINE PHOSPHATASE 94 U/L (35-104); ALT/SGPT 15 U/L (7.0-40); AST/SGOT 11 U/L (<34); BILIRUBIN,TOTAL 0.3 MG/DL (0.3-1.2); BLOOD UREA NITROGEN 17 MG/DL (9-23); C REACTIVE PROTEIN QUANTITATIV 1.13 MG/DL (<1.0); CALCIUM LEVEL 9.2 MG/DL (8.3-10.6); CARBON DIOXIDE LEVEL 32 MMOL/L (20-31); CHLORIDE LEVEL 99 MMOL/L (98-107); CREATININE FOR GFR 0.69 MG/DL (0.55-1.30); GLOMERULAR FILTRATION RATE > 60.0 (>39); GLUCOSE, FASTING 121 MG/DL (74-106); POTASSIUM SERUM 3.9 MMOL/L (3.5-5.1); SODIUM LEVEL 138 MMOL/L (136-145); TOTAL PROTEIN 6.8 G/DL (5.7-8.2)
== END ==
LOC: M LAB REF 11:24
PROVIDERS: ATTEND Internal Medicine Infectious Disease
DX: N10 Acute pyelonephritis (principal)

== ENCOUNTER → 2025-03-11 | Outpatient (REF) | payer MEDICARE, OTHER ==
[2025-03-11 12:02] LABS: BASO # 0.1 10^3/uL (0.0-0.2); BASO % 0.9 % (0.0-1.0); HEMATOCRIT 42.6 % (36.0-47.0); HEMOGLOBIN 12.7 g/dl (12.0-15.5); LYMPH # 2.2 10^3/uL (1.5-5.0); LYMPH % 26.3 % (24.0-44.0); MEAN CORPUSCULAR HEMOGLOBIN 26.7 pg (27.0-33.0); MEAN CORPUSCULAR HGB CONC 29.8 g/dl (32.0-36.5); MEAN CORPUSCULAR VOLUME 89.7 fl (80.0-96.0); MONO # 0.4 10^3/uL (0.0-0.8); MONO % 5.1 % (2.0-8.0); NEUTROPHILS # 5.5 10^3/uL (1.5-8.5); NEUTROPHILS % 67.5 % (36.0-66.0); PLATELET COUNT, AUTOMATED 355 10^3/uL (150-450); RED BLOOD COUNT 4.75 10^6/uL (4.00-5.40); WHITE BLOOD COUNT 8.2 10^3/uL (4.0-10.0)
[2025-03-11 12:07] LABS: ERYTHROCYTE SEDIMENTATION RATE > 130 mm/hr (0-30)
[2025-03-11 12:32] LABS: ALBUMIN 3.1 G/DL (3.2-5.2); BILIRUBIN,TOTAL 0.3 MG/DL (0.3-1.2); C REACTIVE PROTEIN QUANTITATIV 2.79 MG/DL (<1.0); CALCIUM LEVEL 9.4 MG/DL (8.3-10.6); CREATININE FOR GFR 0.75 MG/DL (0.55-1.30); POTASSIUM SERUM 3.6 MMOL/L (3.5-5.1)
== END ==
LOC: M SFHCPLAZ 11:33
PROVIDERS: ATTEND Internal Medicine Infectious Disease
DX: M86.151 Other acute osteomyelitis, right femur (principal)

== ENCOUNTER → 2025-03-25 | Outpatient (REF) | payer MEDICARE, OTHER ==
[2025-03-25 10:53] LABS: BASO # 0.1 10^3/uL (0.0-0.2); BASO % 0.7 % (0.0-1.0); EOS # 0.2 10^3/uL (0.0-0.5); EOS % 2.4 % (0.0-3.0); HEMATOCRIT 43.4 % (36.0-47.0); HEMOGLOBIN 13.2 g/dl (12.0-15.5); LYMPH # 2.3 10^3/uL (1.5-5.0); LYMPH % 32.8 % (24.0-44.0); MEAN CORPUSCULAR HEMOGLOBIN 26.4 pg (27.0-33.0); MEAN CORPUSCULAR HGB CONC 30.4 g/dl (32.0-36.5); MEAN CORPUSCULAR VOLUME 86.8 fl (80.0-96.0); MONO # 0.6 10^3/uL (0.0-0.8); MONO % 8.4 % (2.0-8.0); NEUTROPHILS # 3.9 10^3/uL (1.5-8.5); NEUTROPHILS % 55.4 % (36.0-66.0); PLATELET COUNT, AUTOMATED 283 10^3/uL (150-450)
[2025-03-25 10:59] LABS: ERYTHROCYTE SEDIMENTATION RATE 123 mm/hr (0-30)
[2025-03-25 11:18] LABS: C REACTIVE PROTEIN QUANTITATIV 2.4 MG/DL (<1.0)
[2025-03-25 11:20] LABS: ALBUMIN 3.1 G/DL (3.2-5.2); BILIRUBIN,TOTAL 0.2 MG/DL (0.3-1.2); CALCIUM LEVEL 9.3 MG/DL (8.3-10.6); CREATININE FOR GFR 0.71 MG/DL (0.55-1.30); GLOMERULAR FILTRATION RATE 89.7 (>39); TOTAL PROTEIN 6.9 G/DL (5.7-8.2)
== END ==
LOC: M LAB REF 10:23
PROVIDERS: ATTEND Internal Medicine Infectious Disease
DX: M86.151 Other acute osteomyelitis, right femur (principal)

== ENCOUNTER → 2025-06-06 | Outpatient (REF) | payer MEDICARE, OTHER ==
[2025-06-06 15:31] LABS: BASO # 0.1 10^3/uL (0.0-0.2); BASO % 1.0 % (0.0-1.0); EOS # 0.0 10^3/uL (0.0-0.5); EOS % 0.1 % (0.0-3.0); LYMPH # 2.7 10^3/uL (1.5-5.0); LYMPH % 33.8 % (24.0-44.0); MONO # 0.7 10^3/uL (0.0-0.8); MONO % 9.0 % (2.0-8.0); NEUTROPHILS # 4.5 10^3/uL (1.5-8.5); NEUTROPHILS % 56.0 % (36.0-66.0); PLATELET COUNT, AUTOMATED 300 10^3/uL (150-450)
[2025-06-06 15:48] LABS: ALT/SGPT 20.0 U/L (7.0-40); AST/SGOT 17.0 U/L (<34); CALCIUM LEVEL 9.1 MG/DL (8.3-10.6); CARBON DIOXIDE LEVEL 30.0 MMOL/L (20-31); CHLORIDE LEVEL 98.0 MMOL/L (98-107); CHOLESTEROL LEVEL 190.0 MG/DL (<200); CHOLESTEROL RISK RATIO 4.05 (<5); CREATININE FOR GFR 0.84 MG/DL (0.55-1.30); GLOMERULAR FILTRATION RATE 73.3 (>39); LDL CHOLESTEROL 109.5 MG/DL (<100); NON-HDL-C 143.1 MG/DL; POTASSIUM SERUM 3.9 MMOL/L (3.5-5.1); SODIUM LEVEL 141.0 MMOL/L (136-145); TRIGLYCERIDES LEVEL 168.0 MG/DL (<150)
[2025-06-06 15:58] LABS: ESTIMATED AVERAGE GLUCOSE 140.0 MG/DL (60-110)
== END ==
LOC: M LAB REF 14:45
DX: L89.152 Pressure ulcer of sacral region, stage 2 (principal); Y84.6 Urinary catheterization as the cause of abnormal reaction of the patient, or of later complication, without mention of misadventure at the time of the procedure; S70.312D Abrasion, left thigh, subsequent encounter; Z79.899 Other long term (current) drug therapy; E11.9 Type 2 diabetes mellitus without complications; M19.90 Unspecified osteoarthritis, unspecified site; E78.5 Hyperlipidemia, unspecified

== ENCOUNTER → 2025-11-26 | Outpatient (REF) | payer MEDICARE, OTHER ==
[~2025-11-26] MED LIST changes: -LABE100T6 PO; +LABE100T91 PO
[2025-11-26 14:28] LABS: ALT/SGPT 25.0 U/L (7.0-40); AST/SGOT 18.0 U/L (<34); CALCIUM LEVEL 8.7 MG/DL (8.3-10.6); CARBON DIOXIDE LEVEL 35.0 MMOL/L (20-31); CHLORIDE LEVEL 95.0 MMOL/L (98-107); CHOLESTEROL LEVEL 183.0 MG/DL (<200); CHOLESTEROL RISK RATIO 3.94 (<5); CREATININE FOR GFR 0.86 MG/DL (0.55-1.30); GLOMERULAR FILTRATION RATE 70.9 (>39); LDL CHOLESTEROL 96.0 MG/DL (<100); NON-HDL-C 136.6 MG/DL; POTASSIUM SERUM 3.9 MMOL/L (3.5-5.1); SODIUM LEVEL 139.0 MMOL/L (136-145); TRIGLYCERIDES LEVEL 203.0 MG/DL (<150)
== END ==
LOC: M LAB REF 11:40
PROVIDERS: ATTEND Family Medicine Addiction Medicine
DX: Z13.228 Encounter for screening for other metabolic disorders (principal); Z79.899 Other long term (current) drug therapy